=== PATIENT | female | born 1980 | race Caucasian/White ===

== ENCOUNTER 2017-02-06 16:14 | Inpatient (IN) | payer OTHER ==
[~2017-02-06] VITALS: Ht 162.6 cm; Wt 72.3 kg
[~2017-02-06 16:14] MED LIST: IBUP-1450 PO; PRENTAB26 PO
[2017-02-06] MEDS ORDERED: MoRPHine SULFATE 4 MG/ML 1 ML CARP\\VIAL IV STA (17:56)
[2017-02-06] MEDS ORDERED: SODIUM CHLORIDE 0.9% 500ML 500 ML IV STA (17:56)
[2017-02-06] MEDS ORDERED: ONDANSETRON INJ 2 MG/ML 2 ML VIAL IV STA (17:56)
[2017-02-06] MEDS ORDERED: SODIUM CHLORIDE 0.9% 1000ML 1,000 ML IV STA (17:56)
--- NOTE | 2017-02-06 18:01 | EMERGENCY ROOM VISIT NOTE ---
History Report prepared by Nyasia: Whitney Baker Under the Supervision of: Dr. Elizabeth Tran M.D. First contact with patient: 17:44 Chief Complaint: ABDOMINAL PAIN Stated Complaint: STOMACH AND CHEST PAINS History of Present Illness The patient is a 36 year old female who presents to the Emergency Room with complaints of persistent right upper quadrant abdominal pain that began yesterday. She currently rates her discomfort as a 9/10 in severity. The patient states that yesterday she developed right upper quadrant abdominal pain that has now radiated into her epigastric area. She reports that the pain has radiated into her chest and back. The patient states that she vomited last evening and additionally associates nausea with her symptoms. She reports a history of a cholecystectomy, noting that her pain today feels similar to prior having her gallbladder removed. The patient states that she ate potato soup last evening, but denies eating much today. She states that she smokes 1 pack of cigarettes per day. The patient denies any urinary symptoms and reports normal bowel movements. She denies any chance of , reporting a history of a tubal ligation. The patient denies any history of an appendectomy. Source of History: patient Onset: yesterday Position: abdomen (RUQ) Symptom Intensity: 9/10 Timing: other (persistent) Associated Symptoms: + chest pain, + nausea, + vomiting, + back pain Review of Systems See HPI for pertinent positives & negatives. A total of 10 systems reviewed and were otherwise negative. Past Medical & Surgical Medical Problems: (1) Lower Leg Injury Nos (2) Sprain Of Foot Nos Surgical Problems: (1) H/O tubal ligation (2) S/P cholecystectomy Family History Cancer Social History Smoking Status: Current Every Day Smoker Marital Status: Housing Status: lives with significant other Occupation Status: unemployed Current/Historical Medications Scheduled Amlodipine Besylate (Norvasc), 1 TAB PO DAILY Nicotine (Nicoderm Cq 7 Mg Patch), 1 PATCH TD QAM Scheduled PRN Ibuprofen (Motrin), 600 MG PO Q4 PRN for Headache or Pain Allergies Coded Allergies: Acetaminophen (Unverified Allergy, Unknown, DIZZINESS AND VERTIGO, 02/06/17 ) Diphenhydramine (Unverified Allergy, Unknown, UNKNOWN, 02/06/17) Penicillins (Unverified Allergy, Unknown, UNKNOWN, 6/15/17) Physical Exam Vital Signs Date Time Temp Pulse Resp B/P (MAP) Pulse Ox O2 Delivery O2 Flow Rate FiO2 02/06/17 21:35 86 20 159/100 96 Room Air 02/06/17 20:55 67 20 160/104 97 Room Air 02/06/17 19:56 76 20 138/90 98 Room Air 02/06/17 18:58 68 20 151/100 98 Room Air 02/06/17 16:21 36.7 78 20 150/106 97 Room Air Physical Exam Vital signs reviewed. General: Well-appearing female, in no significant distress. HEENT: No scleral icterus, PERRLA, neck supple. Atraumatic. Cardiovascular: Regular rate and rhythm, no extra sounds. Pulmonary: Clear to auscultation bilaterally, normal work of breathing. Abdomen: Tender to the right upper quadrant and epigastric region with some guarding. Soft, nondistended, positive bowel sounds. Musculoskeletal: Atraumatic, no peripheral edema. Neurologic: Patient awake alert and oriented x 3, full strength in all 4 extremities. Cranial nerves 2 through 12 grossly intact. Skin: Warm, dry, no rash Medical Decision & Procedures ER Provider Diagnostic Interpretation: CT results as stated below per my review and radiologist interpretation: CT OF THE ABDOMEN AND PELVIS WITH CONTRAST CLINICAL HISTORY: RUQ pain, s/p cholecystectomy COMPARISON STUDY: CT of the abdomen and pelvis and right upper quadrant ultrasound January 04, 2014. TECHNIQUE: Following IV administration of 94 mL of Optiray-320, axial images of the abdomen and pelvis were obtained from the lung bases to the proximal femurs. Images were reviewed in the axial, sagittal, and coronal planes. IV contrast was administered without complication. CT DOSE: 347.12 mGy.cm FINDINGS: The gallbladder is surgically absent. There is mild intra and extrahepatic biliary ductal dilatation. The common bile duct measures 1 cm in caliber. No radiopaque common bile duct calculi are identified. There is no fluid collection within the cholecystectomy bed. There may be minimal peripancreatic infiltration with slight indistinctness of the peripancreatic fat planes. The spleen, adrenal glands and these are normal. There is no hydronephrosis. There is no evidence for a bowel obstruction. The appendix is normal. There are tubal ligation clips. The ovaries contain several follicles. No suspicious osseous lesions are present. There is no lymphadenopathy. Major vasculature of the abdomen and pelvis is patent. There are no hepatic lesions. The portal veins are patent. Note is made of focal fat within the medial segment of the left hepatic lobe. IMPRESSION: 1. Minimal peripancreatic infiltration with slight indistinctness of the peripancreatic fat planes which may reflect acute pancreatitis. 2. Mild biliary ductal dilatation. This may be related to prior cholecystectomy although recommend correlation with obstructive liver function tests. Electronically signed by: Misha Barbosa M.D. 02/06/2017 7:44 PM Dictated Date/Time: 02/06/2017 7:37 PM Laboratory Results Test 02/06/17 18:10 02/06/17 18:30 Urine Color YELLOW Urine Appearance CLEAR (CLEAR) Urine pH 7.0 (4.5-7.5) Urine Specific [place] 1.005 (1.000-1.030) Urine Protein NEG (NEG) Urine Glucose (UA) NEG (NEG) Urine Ketones NEG (NEG) Urine Occult Blood NEG (NEG) Urine Nitrite NEG (NEG) Urine Bilirubin NEG (NEG) Urine Urobilinogen NEG (NEG) Urine Leukocyte Esterase NEG (NEG) Urine Test NEG (NEG) Direct Bilirubin 1.2 mg/dl (0-0.2) Amylase Level 1026 U/L (25-115) Laboratory results per my review. Medications Administered Medications (Trade) Dose Ordered Sig/Janeen Route Start Time Stop Time Status Last Admin Dose Admin Sodium Chloride 500 ml @ 999 mls/hr Q31M STAT IV 02/06/17 17:56 02/06/17 18:26 DC 02/06/17 19:00 999 MLS/HR Sodium Chloride 1,000 ml @ 125 mls/hr Q8H STAT IV 02/06/17 17:56 02/06/17 20:36 DC 02/06/17 18:59 125 MLS/HR Morphine Sulfate (MoRPHine SULFATE INJ) 4 mg NOW STAT IV 02/06/17 17:56 02/06/17 17:59 DC 02/06/17 18:59 4 MG Ondansetron HCl (Zofran Inj) 4 mg NOW STAT IV 02/06/17 17:56 02/06/17 17:59 DC 02/06/17 18:59 4 MG Potassium Chloride (Klor-Con M10) 40 meq NOW STAT PO 02/06/17 20:34 02/06/17 21:27 DC 02/06/17 21:33 40 MEQ Lactated Ringer's 1,000 ml @ 200 mls/hr Q5H IV 02/06/17 20:45 02/08/17 11:31 DC 02/08/17 08:05 200 MLS/HR Ketorolac Tromethamine (Toradol Inj) 30 mg NOW STAT IV 02/06/17 21:01 02/06/17 21:27 DC 02/06/17 21:32 30 MG Ketorolac Tromethamine (Toradol Inj) 30 mg Q6H PRN IV 02/06/17 21:15 02/08/17 13:33 DC 02/07/17 21:30 30 MG Morphine Sulfate (MoRPHine SULFATE INJ) 4 mg Q4H PRN IV 02/06/17 21:15 02/07/17 12:23 DC 02/07/17 09:39 4 MG Tramadol HCl (Ultram Tab) Q6H PRN PO 02/06/17 21:15 02/08/17 13:33 DC 02/08/17 05:46 50 MG ECG Indication: abdominal pain, chest pain Rate (beats per minute): 80 Rhythm: normal sinus Findings: no acute ischemic change, no ectopy ED Course 1751: Past medical records reviewed. The patient was evaluated in room C2A. A complete history and physical examination was performed. 1755: Ordered Zofran Inj 4 mg IV, Morphine Sulfate 4 mg IV, Sodium Chloride 1000 ml @ 125 mls/hr IV, Sodium Chloride 500 ml @ 999 mls/hr IV. 2011: I reevaluated the patient and she is resting comfortably. I discussed the exam findings with her and I discussed the treatment plan. She verbalized complete understanding and agreement. She is going to be evaluated for further treatment. 2014: I discussed the patients case with Dr. Calix, Gastroenterology. She is aware of the patient. 2018: I discussed the patients case with Dr. De Oliveira [facility]. He will evaluate the patient for further treatment. Medical Decision Differential diagnosis: Etiologies such as appendicitis, diverticulitis, PUD, biliary pathology, UTI, pancreatitis, obstruction, mesenteric ischemia, aortic pathology, infections, inflammatory bowel disease, renal colic, as well as others were entertained. Medication Reconciliation: I attest that I have personally reviewed the patient' s current medication list. Blood Pressure Screening: Patient was found to have an elevated blood pressure and she will follow along as an inpatient for her symptoms. She additionally notes that she has a known history of hypertension. This pt was evaluated and appeared to be in no distress. IV access was obtained and lab work was drawn. Pt was placed on the knit tubing dyer. Patient was hydrated with normal saline solution. Patient was given IV morphine and Zofran for her discomfort. Laboratory work reveals no elevation of the cardiac enzymes. The patient's lipase is markedly elevated at 18,000. She does have an obstructive pattern to her LFTs. Patient is status post cholecystectomy. CT scan of the abdomen and pelvis is consistent with an acute pancreatitis. There is mild dilatation of the biliary duct. After consultation with Dr. Calix of gastroenterology, the patient will be evaluated by the internal medicine service for admission and further management. Gastroenterology will be consulting. Patient is aware of the plan and agrees. Consults Time Called: 1956 Consulting Physician: Dr. Calix, Gastroenterology Returned Call: 2014 I discussed the patients case with Dr. Calix, Gastroenterology. She is aware of the patient. Additional Consults: Time Called: 2004 Consulted Physician: Abran Mix Returned Call: 2017 Additional Comments: I discussed the patients case with Abran Mix. He will evaluate the patient for further treatment. Impression Primary Impression: Pancreatitis Additional Impression: Biliary obstruction Scribe Attestation The scribe's documentation has been prepared under my direction and personally reviewed by me in its entirety. I confirm that the note above accurately reflects all work, treatment, procedures, and medical decision making performed by me. Departure Information Dispostion Being Evaluated By Hospitalist Prescriptions Amlodipine Besylate (NORVASC) 10 Mg Tab 1 TAB PO DAILY for 30 Days, #30 TAB 0 Refills Prov: Keli Perez, DO 02/08/17 Nicotine (NICODERM CQ 7 MG PATCH) 7 Mg/24 Hr Dis 1 PATCH TD QAM for 15 Days, #15 PATCH Prov: Keli Perez, DO 02/08/17 Referrals Annalise Cota D.O. (PCP) Problem Qualifiers
[2017-02-06] MEDS ORDERED: HYDR12.55 PO (18:05)
[2017-02-06] MEDS ORDERED: OPTIRAY 320 IV PRN (18:15)
[2017-02-06 18:23] LABS: URINE APPEARANCE CLEAR (CLEAR); URINE BILIRUBIN NEG (NEG); URINE COLOR YELLOW; URINE NITRITE NEG (NEG); URINE SPECIFIC GRAVITY 1.005 (1.000-1.030); UROBILINOGEN NEG (NEG); ZZUR CULT IF INDIC CLEAN CATCH NO
[2017-02-06 18:25] LABS: MANUAL MICROSCOPIC REQUIRED? NO; REVIEW REQ? NO
[2017-02-06 18:45] LABS: BASO % 0.2 %; BASO ABS # 0.02 K/uL (0-0.2); COMPLETE YES; EOS % 1.2 %; HEMATOCRIT 44.5 % (37-47); IG% 0.3 %; LYMPH ABS # 1.88 K/uL (1.2-3.4); MEAN CELL VOLUME 87.1 fL (80-100); MEAN CORPUSCULAR HEMOGLOBIN 29.7 pg (25-34); MEAN CORPUSCULAR HGB CONC 34.2 g/dl (32-36); MEAN PLATELET VOLUME 11.1 fL (7.4-10.4); MONO % 6.9 %; NEUT % 73.4 %; PLATELET COUNT 282 K/uL (130-400); RED BLOOD COUNT 5.11 M/uL (4.2-5.4); WHITE BLOOD COUNT 10.42 K/uL (4.8-10.8)
[2017-02-06 19:06] LABS: BUN/CREATININE RATIO 5.5 (10-20); CALCIUM 8.8 mg/dl (8.5-10.1); CREATININE 0.6 mg/dl (0.60-1.20); POTASSIUM 2.8 mmol/L (3.5-5.1)
--- NOTE | 2017-02-06 19:46 | DIAGNOSTIC IMAGING REPORT ---
CT OF THE ABDOMEN AND PELVIS WITH CONTRAST CLINICAL HISTORY: RUQ pain, s/p cholecystectomy COMPARISON STUDY: CT of the abdomen and pelvis and right upper quadrant ultrasound January 04, 2014. TECHNIQUE: Following IV administration of 94 mL of Optiray-320, axial images of the abdomen and pelvis were obtained from the lung bases to the proximal femurs. Images were reviewed in the axial, sagittal, and coronal planes. IV contrast was administered without complication. CT DOSE: 347.12 mGy.cm FINDINGS: The gallbladder is surgically absent. There is mild intra and extrahepatic biliary ductal dilatation. The common bile duct measures 1 cm in caliber. No radiopaque common bile duct calculi are identified. There is no fluid collection within the cholecystectomy bed. There may be minimal peripancreatic infiltration with slight indistinctness of the peripancreatic fat planes. The spleen, adrenal glands and these are normal. There is no hydronephrosis. There is no evidence for a bowel obstruction. The appendix is normal. There are tubal ligation clips. The ovaries contain several follicles. No suspicious osseous lesions are present. There is no lymphadenopathy. Major vasculature of the abdomen and pelvis is patent. There are no hepatic lesions. The portal veins are patent. Note is made of focal fat within the medial segment of the left hepatic lobe. IMPRESSION: 1. Minimal peripancreatic infiltration with slight indistinctness of the peripancreatic fat planes which may reflect acute pancreatitis. 2. Mild biliary ductal dilatation. This may be related to prior cholecystectomy although recommend correlation with obstructive liver function tests. Electronically signed by: Misha Barbosa M.D. 02/06/2017 7:44 PM Dictated Date/Time: 02/06/2017 7:37 PM
[2017-02-06] MEDS ORDERED: POTASSIUM CHLORIDE 10 MEQ TABCR PO STA (20:34)
[2017-02-06] MEDS ORDERED: KETOROLAC TROMETHAMINE 30 MG/ML VIAL IV STA (21:01)
[2017-02-06] MEDS: MoRPHine SULFATE 4 MG/ML 1 ML CARP\\VIAL IV PRN (21:32)
[2017-02-06] MEDS ORDERED: LORAZEPAM 2 MG/ML 1 ML VIAL IV PRN (22:00)
[2017-02-06 22:50] VITALS: BP 169/120; PULSE 66; TEMP 36.7; O2SAT 96
[2017-02-06] MEDS ORDERED: POTASSIUM CHLORIDE 10 MEQ TABCR PO ONE (23:00)
[2017-02-06] MEDS: LACTATED RINGER'S 1000ML 1,000 ML IV SCH (23:00)
--- NOTE | 2017-02-06 23:11 | DIAGNOSTIC IMAGING REPORT ---
MRCP CLINICAL HISTORY: Abdominal pain. COMPARISON STUDY: CT of the abdomen and pelvis performed earlier today. TECHNIQUE: Utilizing a 1.5 Nydia magnet, multiplanar, multi echo imaging of the upper abdomen was performed utilizing heavily T2 weighted sequences. No intravenous contrast was administered. FINDINGS: There is mild intra and extrahepatic biliary ductal dilatation status post cholecystectomy. Common bile duct measures 1 cm in caliber. This study is mildly compromised by motion artifact. No common bile duct calculus is identified. The course and caliber of the main pancreatic duct is normal. There is no peripancreatic fluid. There are no peripancreatic fluid collections. Unenhanced images of liver, spleen, adrenal glands and kidneys are normal. There is no hydronephrosis. There is no ascites or lymphadenopathy within the abdomen. IMPRESSION: Mild biliary ductal dilatation status post cholecystectomy. No common bile duct calculi identified although exam mildly compromised by motion artifact. Electronically signed by: Misha Barbosa M.D. 02/06/2017 11:10 PM Dictated Date/Time: 02/06/2017 11:01 PM
[2017-02-06 23:15] VITALS: O2SAT 96; Ht 162.6 cm; Wt 72.3 kg
[2017-02-06] MEDS: KETOROLAC TROMETHAMINE 30 MG/ML VIAL IV PRN (23:23)
[2017-02-06 23:36] VITALS: BP 147/94; PULSE 55
[2017-02-07] VITALS (7 sets, daily range): BP systolic 125–179; BP diastolic 80–116; PULSE 50–63; TEMP 36.3–36.7; O2SAT 92–96
--- NOTE | 2017-02-07 00:42 | HISTORY & PHYSICAL EXAMINATION ---
DATE OF ADMISSION: 02/06/2017 PRIMARY CARE DOCTOR: Dr. Cota. CHIEF COMPLAINT: Abdominal pain. HISTORY OF PRESENT ILLNESS: Hx obtained from px and records. Medical history significant for hypertension, ongoing tobacco abuse. In the last 2 months, patient would have intermittent achy right upper quadrant pain w/ nausea, similar to gallbladder pain, unrelated to food, spontaneously resolving, would just last for a few hours. Yesterday, more constant pain, achy with nausea, no vomiting, no fever, no chills. Patient directed to the Emergency Room by PCP. MEDICAL HISTORY: As above. Recently started on HCTZ for blood pressure elevation. SURGERIES: She had cholecystectomy. HOME MEDICATIONS: Include HCTZ, ibuprofen. ALLERGIES: DIPHENHYDRAMINE, PENICILLIN AND TYLENOL. FAMILY HISTORY: Gallbladder disease. PERSONAL AND SOCIAL HISTORY: One-fourth pack daily. No chronic intake of alcoholic beverages. Works as a postal service window clerk. REVIEW OF SYSTEMS: As per HPI, all other ROS negative. PHYSICAL EXAMINATION: VITAL SIGNS: Blood pressure was noted to be 150/80, pulse rate 70, RR 26, temperature 36.6, sats 98 on room air. GENERAL: Noted to be slightly uncomfortable, no resp distress. SKIN: Normal color. HEENT: [place] palpebral conjunctivae. Dry mucosa. NECK: No JVD. Supple. CHEST: Clear to auscultation. HEART: Regular rate and rhythm. ABDOMEN: Epigastric tenderness. EXTREMITIES: No edema. no tenderness NEUROLOGIC: No gross focality. LABS: Hemoglobin 15, hematocrit 44, white cells 10, platelets 280. Sodium 140, potassium, 2.8, chloride 105, CO2 30. BUN noted to be 3, creatinine 0.6, glucose was noted to be 92. AST 442, ALT 285, alkaline phosphatase 270, lipase was 18,863. CT abdomen and pelvis showed minimal peripancreatic infiltration, acute pancreatitis, mild biliary duct dilatation. ASSESSMENT: 1. Acute biliary pancreatitis possible retained stone. 2. Hypertension, slightly elevated. 3. Hypokalemia, secondary to illness/diuretic therapy. 4. ongoing tobacco abuse PLAN: GMF analgesia, IV fluids, bowel rest MRCP GI consult RE pancreatitis. (ER M.D. already in touch with Dr. Calix) Replace potassium. Hold HCTZ for now Nicotine patch. DVT prophylaxis Lovenox subQ. Full code. MTDD
[2017-02-07] MEDS: LACTATED RINGER'S 1000ML 1,000 ML IV SCH ×5 (01:39→21:30)
[2017-02-07] MEDS: MoRPHine SULFATE 4 MG/ML 1 ML CARP\\VIAL IV PRN ×3 (01:39→09:39)
[2017-02-07 06:58] LABS: BASO % 0.3 %; BASO ABS # 0.03 K/uL (0-0.2); COMPLETE YES; EOS % 1.7 %; HEMATOCRIT 43.4 % (37-47); IG% 0.2 %; LYMPH % 23.1 %; LYMPH ABS # 2.26 K/uL (1.2-3.4); MEAN CELL VOLUME 87.9 fL (80-100); MEAN CORPUSCULAR HEMOGLOBIN 27.5 pg (25-34); MEAN CORPUSCULAR HGB CONC 31.3 g/dl (32-36); MEAN PLATELET VOLUME 10.2 fL (7.4-10.4); MONO % 8.5 %; NEUT % 66.2 %; PLATELET COUNT 253 K/uL (130-400); RED BLOOD COUNT 4.94 M/uL (4.2-5.4)
[2017-02-07 07:12] LABS: INR 1.1 (0.9-1.1); PROTHROMBIN TIME (PATIENT) 11.6 SECONDS (9.0-12.0)
[2017-02-07 07:48] LABS: BUN/CREATININE RATIO 14.3 (10-20); CALCIUM 8.5 mg/dl (8.5-10.1); CREATININE 0.51 mg/dl (0.60-1.20); POTASSIUM 3.4 mmol/L (3.5-5.1)
[2017-02-07] MEDS ORDERED: POTASSIUM CHLORIDE 20 MEQ TABCR PO ONE (08:30)
[2017-02-07] MEDS: KETOROLAC TROMETHAMINE 30 MG/ML VIAL IV PRN ×2 (08:33→21:30)
[2017-02-07] MEDS: ENOXAPARIN 40 MG/0.4 ML SYR SQ SCH (09:00)
--- NOTE | 2017-02-07 09:00 | Gastrointestinal Consultation ---
Gastrointestinal Consultation Date of Consultation: Feb 07, 2017 Attending Physician: Dr. Perez; consult from Dr. De Oliveira Consulting Physician: Dr. Jaiden Howell Reason for Consultation: Pancreatitis History of Present Illness Patient is a 36 year old female patient with a hx of cholecystectomy in 2013, newly dx'ed HTN (for which she was prescribed HCTZ but hasn't yet filled the prescription) presented to the ED yesterday for abdominal pain. GI is consulted for pancreatitis. She is seen and examined while she is somewhat sleepy but is oriented and able to provide a hx. Pain began around 8PM on Friday evening and has persisted, worsening since then. Initially it was in the right mid abdomen but has moved to the RUQ and across the entire upper abdomen, worse in the epigastric area, radiating to the back. With the pain, she has had nausea and one episode of vomiting on Fri night. She has not had fevers but does have sweating with waves of worsening pain. She noticed very dark urine since Fri evening but no acholic stools, jaundice or icterus. 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 She recalls that during the past month, she has had similar episodes of pain lasting only a few hours for which she did not seek care. She is not on any regular meds. She takes ibuprofen 600mg occasionally for headaches, aches and pains and thinks she took this about 3 times in the month of January. This prescription strength pill was "left over" from having a tubal ligation in October. On arrival, LFTs and lipase were elevated. T bili was 2.4 on arrival and is 3.5 this morning. AST was 442 and is now 243. ALT was 285 and is now 214. Lipase was > 18k yesterday and >3k today. She is afebrile w/o leukocytosis. She has not had tachycardia or hypotension and creatinine has remained normal. She is receiving LR at 200/hr. CT with mild pancreatitis, CBD dilated at 1cm but no clear evidence of choledocholithiasis. She is S/P cholecystectomy. Past Medical/Surgical History Medical Problems: (1) Biliary obstruction Status: Acute (2) Hypertension Status: Acute (3) Pancreatitis Status: Acute Family History Cancer Social History Smoking Status: Current Every Day Smoker Marital Status: Housing Status: lives with significant other Occupation Status: unemployed Allergies Coded Allergies: Acetaminophen (Unverified Allergy, Unknown, DIZZINESS AND VERTIGO, 02/06/17 ) Diphenhydramine (Unverified Allergy, Unknown, UNKNOWN, 02/06/17) Penicillins (Unverified Allergy, Unknown, UNKNOWN, 02/06/17) Current Medications Home Meds and Scripts Medications Dose Route/Sig Max Daily Dose Days Date Category Hydrochlorothiazide 12.5 Mg Tab 12.5 Mg PO DAILY 02/06/17 Reported Motrin (Ibuprofen) 600 Mg Tab 600 Mg PO Q4 PRN 07/30/16 Reported Review of Systems Constitutional: + sweats, No fever, No chills, No weight loss, No weakness Eyes: No eye pain, No redness ENT: No sore throat, No trouble swallowing, No pain on swallowing Respiratory: No cough, No wheezing, No shortness of breath, No dyspnea on exertion Cardiac: No chest pain, No edema, No palpitations Abdomen: + see HPI, + pain, + nausea, + vomiting, + dark urine, No GI bleeding , No acolic stools, No jaundice Neuro: No memory loss, No weakness, No numbness/tingling, No vertigo, No balance problems Psych: No depression symptoms, No anxiety, No insomnia Heme: No abnormal bleeding/bruising, No night sweats Endo: No excessive thirst, No excessive urination Skin: No rash, No itch, No new/changing skin lesions, No jaundice Physical Exam Date Time Temp Pulse Resp B/P (MAP) Pulse Ox O2 Delivery O2 Flow Rate FiO2 02/07/17 06:55 36.5 63 16 125/80 (95) 93 Room Air 02/06/17 23:36 55 147/94 (111) 02/06/17 23:15 Room Air 02/06/17 23:15 96 Room Air 02/06/17 22:50 36.7 66 16 169/120 (136) 96 Room Air 02/06/17 21:35 86 20 159/100 96 Room Air 02/06/17 20:55 67 20 160/104 97 Room Air 02/06/17 19:56 76 20 138/90 98 Room Air 02/06/17 18:58 68 20 151/100 98 Room Air 02/06/17 16:21 36.7 78 20 150/106 97 Room Air General Appearance: no apparent distress Eyes: normal inspection, EOMI Neck: supple, no adenopathy, thyroid normal Respiratory/Chest: chest non-tender, lungs clear, normal breath sounds, no accessory muscle use Cardiovascular: regular rate, rhythm, no JVD, no murmur Abdomen: normal bowel sounds, soft, no organomegaly, + tenderness (moderate tenderness of the right upper and lower abdomen, very tender in the epigastric area.) Extremities: normal inspection, no pedal edema, normal capillary refill Neurologic/Psych: alert, normal mood/affect, oriented x 3 Skin: normal color, no jaundice, warm/dry, no rash Laboratory Results Last 24 Hours Test 02/06/17 18:10 02/06/17 18:30 02/07/17 06:34 Urine Color YELLOW Urine Appearance CLEAR Urine pH 7.0 Urine Specific [place] 1.005 Urine Protein NEG Urine Glucose (UA) NEG Urine Ketones NEG Urine Occult Blood NEG Urine Nitrite NEG Urine Bilirubin NEG Urine Urobilinogen NEG Urine Leukocyte Esterase NEG Urine Test NEG White Blood Count 10.42 K/uL 9.80 K/uL Red Blood Count 5.11 M/uL 4.94 M/uL Hemoglobin 15.2 g/dL 13.6 g/dL Hematocrit 44.5 % 43.4 % Mean Corpuscular Volume 87.1 fL 87.9 fL Mean Corpuscular Hemoglobin 29.7 pg 27.5 pg Mean Corpuscular Hemoglobin Concent 34.2 g/dl 31.3 g/dl Platelet Count 282 K/uL 253 K/uL Mean Platelet Volume 11.1 fL 10.2 fL Neutrophils (%) (Auto) 73.4 % 66.2 % Lymphocytes (%) (Auto) 18.0 % 23.1 % Monocytes (%) (Auto) 6.9 % 8.5 % Eosinophils (%) (Auto) 1.2 % 1.7 % Basophils (%) (Auto) 0.2 % 0.3 % Neutrophils # (Auto) 7.65 K/uL 6.49 K/uL Lymphocytes # (Auto) 1.88 K/uL 2.26 K/uL Monocytes # (Auto) 0.72 K/uL 0.83 K/uL Eosinophils # (Auto) 0.12 K/uL 0.17 K/uL Basophils # (Auto) 0.02 K/uL 0.03 K/uL RDW Standard Deviation 46.2 fL 47.2 fL RDW Coefficient of Variation 14.5 % 14.6 % Immature Granulocyte % (Auto) 0.3 % 0.2 % Immature Granulocyte # (Auto) 0.03 K/uL 0.02 K/uL Sodium Level 141 mmol/L 146 mmol/L Potassium Level 2.8 mmol/L 3.4 mmol/L Chloride Level 105 mmol/L 110 mmol/L Carbon Dioxide Level 30 mmol/L 27 mmol/L Anion Gap 6.0 mmol/L 9.0 mmol/L Blood Urea Nitrogen 3 mg/dl 7 mg/dl Creatinine 0.60 mg/dl 0.51 mg/dl Est Creatinine Clear Calc Drug Dose 126.4 ml/min 148.7 ml/min Estimated GFR () 135.9 143.4 Estimated GFR (Non- 117.3 123.7 BUN/Creatinine Ratio 5.5 14.3 Random Glucose 92 mg/dl 63 mg/dl Calcium Level 8.8 mg/dl 8.5 mg/dl Magnesium Level 2.0 mg/dl Total Bilirubin 2.4 mg/dl 3.5 mg/dl Direct Bilirubin 1.2 mg/dl Aspartate Amino Transf (AST/SGOT) 442 U/L 243 U/L Alanine Aminotransferase (ALT/SGPT) 285 U/L 214 U/L Alkaline Phosphatase 270 U/L 262 U/L Total Protein 7.6 gm/dl 6.1 gm/dl Albumin 3.8 gm/dl 3.0 gm/dl Amylase Level 1026 U/L Lipase 36753 U/L 3434 U/L Prothrombin Time 11.6 SECONDS Prothromb Time International Ratio 1.1 Globulin 3.1 gm/dl Albumin/Globulin Ratio 1.0 MRI: Mild biliary ductal dilatation status post cholecystectomy. No common bile duct calculi identified although exam mildly compromised by motion artifact. Impression Patient is a 36 year old female with acute pancreatitis with elevation of the LFTs and bile duct dilation, both suggestive of choledocholithiasis though no clear evidence of that on imaging. She does not drink alcohol and is not on any regular medicines or supplements so there is no other obvious cause for the pancreatitis. Plan 1. EUS today by Dr. Howell. 2. If EUS with choledocholithiasis, will go forward with ERCP. 3. Please keep NPO. 4. Appreciate primary services management of fluids, electrolytes. Please continue with LR at 200/hr. I saw and evaluated the patient. She presented with a history of recurrent RUQ pain since cholecystectomy about 2 years ago. Last evening she was found to have elevated LAEs, MRCP inconclusive due to motion artifact. PE: Scleral icterus, Mild RUQ tenderness Impression; Patient with signs / symptoms of a retained or de lin stone post cholecystectomy. We have discussed the risks to include bleeding, infection, perforation, pain, pancreatitis, and failed biliary cannulation. Plan EGD / EUS ERCP if found to have a CBD stones
[2017-02-07] MEDS: ONDANSETRON INJ 2 MG/ML 2 ML VIAL IV PRN ×2 (09:34→17:57)
[2017-02-07] MEDS: NICOTINE 7 MG/24 HR TDSY TD SCH (09:36)
[2017-02-07] MEDS ORDERED: HYDROmorphone INJ 0.5 MG/0.5 ML SYR IV STA (12:20)
[2017-02-07] MEDS ORDERED: MoRPHine SULFATE 10 MG/ML CARP/VIAL IV PRN (12:30)
--- NOTE | 2017-02-07 12:33 | Progress Note ---
Medicine Progress Note Date & Time of Visit: Feb 07, 2017 at 12:24. Subjective 36 yo F with acute pancreatitis Symptoms have been ongoing for the past 3-4 months where she will feel this same pain and it will spontaneously resolve within 3-4 hours. She denies going to see a doctor about this issue. She is not a drinker, has had her GB out, denies any new medications that she has started including no OTC and is otherwise healthy. 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 She feels about the same as yesterday and is complaining of uncontrolled pain in her epigastric area. She does state there is no further radiation to her back any longer. Denies fevers, chills or other symptoms at this time. NPO in prep for GI procedure later today. Objective Last 8 Hrs Date Time Temp Pulse Resp B/P (MAP) Pulse Ox O2 Delivery O2 Flow Rate FiO2 02/07/17 06:55 36.5 63 16 125/80 (95) 93 Room Air Physical Exam: GEN: WNWD, in no acute distress, alert and appropriate HEENT: NC/AT, PERRL, normal sclerae, MM dry CARDIO: reg rate, S1/2 heard without m/g/r, no LE swelling or edema LUNGS: CTA bilaterally, no crackles, rales or wheezes, good diaphragmatic excursion ABD: soft, epigastric TTP, non-distended, no rebound or guarding, +BS-hypoactive , no CVA tenderness EXTREMITY: RP and DP palpable 2+ bilat, extremities are warm and well-perfused NEURO: CN 2-12 grossly intact, no gross focal deficits. MUSC: moves all extremities equally. Can sit up on her own. SKIN: warm and dry Laboratory Results: 02/07/17 06:34 Red Blood Count 4.94, Mean Corpuscular Volume 87.9, Mean Corpuscular Hemoglobin 27.5, Mean Corpuscular Hemoglobin Concent 31.3, Mean Platelet Volume 10.2, Neutrophils (%) (Auto) 66.2, Lymphocytes (%) (Auto) 23.1, Monocytes (%) (Auto) 8.5, Eosinophils (%) (Auto) 1.7, Basophils (%) (Auto) 0.3, Neutrophils # (Auto) 6.49, Lymphocytes # (Auto) 2.26, Monocytes # (Auto) 0.83, Eosinophils # (Auto) 0.17, Basophils # (Auto) 0.03 02/07/17 06:34 Test 02/06/17 18:10 02/06/17 18:30 02/07/17 06:34 Urine Color YELLOW Urine Appearance CLEAR (CLEAR) Urine pH 7.0 (4.5-7.5) Urine Specific [place] 1.005 (1.000-1.030) Urine Protein NEG (NEG) Urine Glucose (UA) NEG (NEG) Urine Ketones NEG (NEG) Urine Occult Blood NEG (NEG) Urine Nitrite NEG (NEG) Urine Bilirubin NEG (NEG) Urine Urobilinogen NEG (NEG) Urine Leukocyte Esterase NEG (NEG) Urine Test NEG (NEG) Magnesium Level 2.0 mg/dl (1.8-2.4) Direct Bilirubin 1.2 mg/dl (0-0.2) Amylase Level 1026 U/L (25-115) White Blood Count 9.80 K/uL (4.8-10.8) Red Blood Count 4.94 M/uL (4.2-5.4) Hemoglobin 13.6 g/dL (12.0-16.0) Hematocrit 43.4 % (37-47) Mean Corpuscular Volume 87.9 fL (80-100) Mean Corpuscular Hemoglobin 27.5 pg (25-34) Mean Corpuscular Hemoglobin Concent 31.3 g/dl (32-36) Platelet Count 253 K/uL (130-400) Mean Platelet Volume 10.2 fL (7.4-10.4) Neutrophils (%) (Auto) 66.2 % Lymphocytes (%) (Auto) 23.1 % Monocytes (%) (Auto) 8.5 % Eosinophils (%) (Auto) 1.7 % Basophils (%) (Auto) 0.3 % Neutrophils # (Auto) 6.49 K/uL (1.4-6.5) Lymphocytes # (Auto) 2.26 K/uL (1.2-3.4) Monocytes # (Auto) 0.83 K/uL (0.11-0.59) Eosinophils # (Auto) 0.17 K/uL (0-0.5) Basophils # (Auto) 0.03 K/uL (0-0.2) RDW Standard Deviation 47.2 fL (36.4-46.3) RDW Coefficient of Variation 14.6 % (11.5-14.5) Immature Granulocyte % (Auto) 0.2 % Immature Granulocyte # (Auto) 0.02 K/uL (0.00-0.02) Prothrombin Time 11.6 SECONDS (9.0-12.0) Prothromb Time International Ratio 1.1 (0.9-1.1) Anion Gap 9.0 mmol/L (3-11) Est Creatinine Clear Calc Drug Dose 148.7 ml/min Estimated GFR () 143.4 Estimated GFR (Non- 123.7 BUN/Creatinine Ratio 14.3 (10-20) Calcium Level 8.5 mg/dl (8.5-10.1) Total Bilirubin 3.5 mg/dl (0.2-1) Aspartate Amino Transf (AST/SGOT) 243 U/L (15-37) Alanine Aminotransferase (ALT/SGPT) 214 U/L (12-78) Alkaline Phosphatase 262 U/L (45-117) Total Protein 6.1 gm/dl (6.4-8.2) Albumin 3.0 gm/dl (3.4-5.0) Globulin 3.1 gm/dl (2.5-4.0) Albumin/Globulin Ratio 1.0 (0.9-2) Lipase 3434 U/L (73-393) Last 24 Hours Test 02/06/17 18:10 02/06/17 18:30 02/07/17 06:34 Urine Color YELLOW Urine Appearance CLEAR Urine pH 7.0 Urine Specific [place] 1.005 Urine Protein NEG Urine Glucose (UA) NEG Urine Ketones NEG Urine Occult Blood NEG Urine Nitrite NEG Urine Bilirubin NEG Urine Urobilinogen NEG Urine Leukocyte Esterase NEG Urine Test NEG White Blood Count 10.42 K/uL 9.80 K/uL Red Blood Count 5.11 M/uL 4.94 M/uL Hemoglobin 15.2 g/dL 13.6 g/dL Hematocrit 44.5 % 43.4 % Mean Corpuscular Volume 87.1 fL 87.9 fL Mean Corpuscular Hemoglobin 29.7 pg 27.5 pg Mean Corpuscular Hemoglobin Concent 34.2 g/dl 31.3 g/dl Platelet Count 282 K/uL 253 K/uL Mean Platelet Volume 11.1 fL 10.2 fL Neutrophils (%) (Auto) 73.4 % 66.2 % Lymphocytes (%) (Auto) 18.0 % 23.1 % Monocytes (%) (Auto) 6.9 % 8.5 % Eosinophils (%) (Auto) 1.2 % 1.7 % Basophils (%) (Auto) 0.2 % 0.3 % Neutrophils # (Auto) 7.65 K/uL 6.49 K/uL Lymphocytes # (Auto) 1.88 K/uL 2.26 K/uL Monocytes # (Auto) 0.72 K/uL 0.83 K/uL Eosinophils # (Auto) 0.12 K/uL 0.17 K/uL Basophils # (Auto) 0.02 K/uL 0.03 K/uL RDW Standard Deviation 46.2 fL 47.2 fL RDW Coefficient of Variation 14.5 % 14.6 % Immature Granulocyte % (Auto) 0.3 % 0.2 % Immature Granulocyte # (Auto) 0.03 K/uL 0.02 K/uL Sodium Level 141 mmol/L 146 mmol/L Potassium Level 2.8 mmol/L 3.4 mmol/L Chloride Level 105 mmol/L 110 mmol/L Carbon Dioxide Level 30 mmol/L 27 mmol/L Anion Gap 6.0 mmol/L 9.0 mmol/L Blood Urea Nitrogen 3 mg/dl 7 mg/dl Creatinine 0.60 mg/dl 0.51 mg/dl Est Creatinine Clear Calc Drug Dose 126.4 ml/min 148.7 ml/min Estimated GFR () 135.9 143.4 Estimated GFR (Non- 117.3 123.7 BUN/Creatinine Ratio 5.5 14.3 Random Glucose 92 mg/dl 63 mg/dl Calcium Level 8.8 mg/dl 8.5 mg/dl Magnesium Level 2.0 mg/dl Total Bilirubin 2.4 mg/dl 3.5 mg/dl Direct Bilirubin 1.2 mg/dl Aspartate Amino Transf (AST/SGOT) 442 U/L 243 U/L Alanine Aminotransferase (ALT/SGPT) 285 U/L 214 U/L Alkaline Phosphatase 270 U/L 262 U/L Total Protein 7.6 gm/dl 6.1 gm/dl Albumin 3.8 gm/dl 3.0 gm/dl Amylase Level 1026 U/L Lipase 16527 U/L 3434 U/L Prothrombin Time 11.6 SECONDS Prothromb Time International Ratio 1.1 Globulin 3.1 gm/dl Albumin/Globulin Ratio 1.0 Diagnostic Imaging: MRCP CLINICAL HISTORY: Abdominal pain. COMPARISON STUDY: CT of the abdomen and pelvis performed earlier today. TECHNIQUE: Utilizing a 1.5 Nydia magnet, multiplanar, multi echo imaging of the upper abdomen was performed utilizing heavily T2 weighted sequences. No intravenous contrast was administered. FINDINGS: There is mild intra and extrahepatic biliary ductal dilatation status post cholecystectomy. Common bile duct measures 1 cm in caliber. This study is mildly compromised by motion artifact. No common bile duct calculus is identified. The course and caliber of the main pancreatic duct is normal. There is no peripancreatic fluid. There are no peripancreatic fluid collections. Unenhanced images of liver, spleen, adrenal glands and kidneys are normal. There is no hydronephrosis. There is no ascites or lymphadenopathy within the abdomen. IMPRESSION: Mild biliary ductal dilatation status post cholecystectomy. No common bile duct calculi identified although exam mildly compromised by motion artifact. Assessment & Plan 36 yo F with acute pancreatitis 1. Acute pancreatitis-uncertain etiology at this time and not much improved from a pain standpoint. LFTs are obstructive pattern, MRCP was negative for retained stone and patient is s/p zhanna. GI consulted and plans for EUS later today. Apprec recs. No new meds started (HCTZ ordered but not started as outpatient). Cont LR at 200/hr for now, pain control and NPO for now. 2. HTN-expected situational elevation of BP. Will institute better pain control with morphine. Note that patient is allergic to Tylenol. 3. Hypokalemia-replacement given this am. Will check PRP and Mg in am 4. Tobacco use-cont Nicoderm patch. Pt aware this is a low dose and is OK with that for now. DVT proph: Lovenox in setting of inflammation Full Code Dispo-cont med/surg, awaiting further GI evaluation later today Keli Perez DO [facility] Hospitalist Consultants: GI Current Inpatient Medications: Current Inpatient Medications Medications (Trade) Dose Ordered Sig/Janeen Route Start Time Stop Time Status Last Admin Dose Admin Ioversol (Optiray 320) 100 ml UD PRN IV 02/06/17 18:15 02/10/17 18:14 Lactated Ringer's 1,000 ml @ 200 mls/hr Q5H IV 02/06/17 20:45 03/08/17 20:44 02/07/17 11:21 200 MLS/HR Ketorolac Tromethamine (Toradol Inj) 30 mg Q6H PRN IV 02/06/17 21:15 02/11/17 21:14 02/07/17 08:33 30 MG Morphine Sulfate (MoRPHine SULFATE INJ) 4 mg Q4H PRN IV 02/06/17 21:15 02/20/17 21:14 02/07/17 09:39 4 MG Tramadol HCl (Ultram Tab) Q6H PRN PO 02/06/17 21:15 03/08/17 21:14 Enoxaparin Sodium (Lovenox Inj) 40 mg QAM SQ 02/07/17 09:00 03/09/17 08:59 Ondansetron HCl (Zofran Inj) 4 mg Q6H PRN IV 02/06/17 22:00 03/08/17 21:59 02/07/17 09:34 4 MG Lorazepam (Ativan Inj) 0.5 mg Q4H PRN IV 02/06/17 22:00 03/08/17 21:59 Nicotine (Nicoderm Cq 7 Mg Patch) 1 patch QAM TD 02/07/17 09:00 03/09/17 08:59 02/07/17 09:36 1 PATCH Miscellaneous (Remove Nicoderm Patch) 1 ea HS N/A 02/07/17 21:00 03/09/17 20:59
[2017-02-07] MEDS ORDERED: PROPOFOL IV EMULSION 10 MG/ML 20 ML VIAL IV ONE (14:24)
[2017-02-07] MEDS ORDERED: NEOSTIGMINE METHYLSULFATE 5 MG/5 ML SYR ONE (14:24)
[2017-02-07] MEDS ORDERED: ONDANSETRON INJ 2 MG/ML 2 ML VIAL ONE (14:24)
[2017-02-07] MEDS ORDERED: ROCURONIUM BROMIDE 10 MG/ML 5 ML VIAL ONE (14:24)
[2017-02-07] MEDS ORDERED: MIDAZOLAM HCL 1 MG/ML 2ML VIAL ONE (14:24)
[2017-02-07] MEDS ORDERED: GLYCOPYRROLATE INJ 0.2 MG/ML VIAL ONE (14:24)
[2017-02-07] MEDS ORDERED: LIDOCAINE HCL 2% 2 ML VIAL (20MG/ML) ONE (14:24)
[2017-02-07] MEDS ORDERED: DEXAMETHASONE SOD INJ 4 MG/ML VIAL ONE (14:24)
[2017-02-07] MEDS ORDERED: FENTANYL CITRATE INJ 50 MCG/1 ML 2 ML VIAL ONE (14:24)
[2017-02-07] MEDS ORDERED: FENTANYL CITRATE INJ 50 MCG/1 ML 2 ML VIAL IV PRN (14:45)
[2017-02-07] MEDS ORDERED: ONDANSETRON INJ 2 MG/ML 2 ML VIAL IV PRN (14:45)
[2017-02-07] MEDS ORDERED: ATROPINE SULFATE 0.1 MG/ML 5ML SYR IV PRN (14:45)
[2017-02-07] MEDS ORDERED: PROMETHAZINE HCL INJ 6.25 MG in SODIUM CHLORIDE 0.9% 50ML 50 ML IV PRN (14:45)
[2017-02-07] MEDS ORDERED: EpHEDrine SULFATE INJ 50 MG/ML AMP IV PRN (14:45)
[2017-02-07] MEDS ORDERED: INDOMETHACIN 50 MG SUPP PR ONE ×2 (14:49→16:00)
--- NOTE | 2017-02-07 15:12 | GI REPORT ---
Procedure Date: 02/07/2017 3:06 PM Procedure: Upper GI endoscopy Indications: Epigastric abdominal pain Medicines: General Anesthesia Complications: No immediate complications. Estimated blood loss: Minimal. Estimated Blood Loss: Estimated blood loss was minimal. Procedure: Pre-Anesthesia Assessment: - Prior to the procedure, a History and Physical was performed, and patient medications, allergies and sensitivities were reviewed. The patient's tolerance of previous anesthesia was reviewed. - The risks and benefits of the procedure and the sedation options and risks were discussed with the patient. All questions were answered and informed consent was obtained. - Patient identification and proposed procedure were verified prior to the procedure by the physician, the nurse and the sugar mixer. The procedure was verified in the procedure room. - Pre-procedure physical examination revealed no contraindications to sedation. - ASA Grade Assessment: III - A patient with severe systemic disease. - After reviewing the risks and benefits, the patient was deemed in satisfactory condition to undergo the procedure. - The anesthesia plan was to use general anesthesia. - Immediately prior to administration of medications, the patient was re-assessed for adequacy to receive sedatives. - The heart rate, respiratory rate, oxygen saturations, blood pressure, adequacy of pulmonary ventilation, and response to care were monitored throughout the procedure. - The physical status of the patient was re-assessed after the procedure. After obtaining informed consent, the endoscope was passed under direct vision. Throughout the procedure, the patient's blood pressure, pulse, and oxygen saturations were monitored continuously. The scope was introduced through the mouth, and advanced to the second part of duodenum. The upper GI endoscopy was accomplished without difficulty. The patient tolerated the procedure well. Findings: The examined esophagus was normal. The Z-line was regular and was found 39 cm from the incisors. The entire examined stomach was normal. The examined duodenum was normal. Impression: - Normal esophagus. - Z-line regular, 39 cm from the incisors. - Normal stomach. - Normal examined duodenum. - No specimens collected. Recommendation: - Perform an upper endoscopic ultrasound (UEUS) today. Jaiden Howell D.O. Jaiden Howell DO 02/07/2017 3:11:56 PM This report has been signed electronically. Note Initiated On: 02/07/2017 3:06 PM I attest to the content of the Intraoperative Record and orders documented therein, exceptions below
--- NOTE | 2017-02-07 16:07 | GI REPORT ---
Procedure Date: 02/07/2017 3:12 PM Procedure: Upper EUS Indications: Abnormal liver function test, Suspected choledocholithiasis Medicines: General Anesthesia Complications: No immediate complications. Estimated blood loss: Minimal. Estimated Blood Loss: Estimated blood loss was minimal. Procedure: Pre-Anesthesia Assessment: - Prior to the procedure, a History and Physical was performed, and patient medications, allergies and sensitivities were reviewed. The patient's tolerance of previous anesthesia was reviewed. - The risks and benefits of the procedure and the sedation options and risks were discussed with the patient. All questions were answered and informed consent was obtained. - Patient identification and proposed procedure were verified prior to the procedure by the physician, the nurse and the hand touch up painter. The procedure was verified in the procedure room. - Pre-procedure physical examination revealed no contraindications to sedation. - ASA Grade Assessment: III - A patient with severe systemic disease. - After reviewing the risks and benefits, the patient was deemed in satisfactory condition to undergo the procedure. - The anesthesia plan was to use general anesthesia. - Immediately prior to administration of medications, the patient was re-assessed for adequacy to receive sedatives. - The heart rate, respiratory rate, oxygen saturations, blood pressure, adequacy of pulmonary ventilation, and response to care were monitored throughout the procedure. - The physical status of the patient was re-assessed after the procedure. After obtaining informed consent, the endoscope was passed under direct vision. Throughout the procedure, the patient's blood pressure, pulse, and oxygen saturations were monitored continuously. The Endosonoscope was introduced through the mouth, and advanced to the second part of duodenum. The upper EUS was accomplished without difficulty. The patient tolerated the procedure well. Findings: Endosonographic Finding : Evidence of a previous cholecystectomy was identified endosonographically. There was dilation in the common bile duct which measured up to 9.2 mm. Moderate hyperechoic material consistent with sludge and a stone was visualized endosonographically in the common bile duct. There was no sign of significant endosonographic abnormality in the left lobe of the liver. Homogeneous parenchyma was identified. There was no sign of significant endosonographic abnormality in the entire pancreas. No masses, no cysts, the pancreatic duct was thin in caliber. No lymphadenopathy seen. There was no sign of significant endosonographic abnormality in the left adrenal gland. No adrenal gland enlargement was identified. Impression: - Evidence of a cholecystectomy. - There was dilation in the common bile duct which measured up to 9.2 mm. - Hyperechoic material consistent with sludge and a stone was visualized endosonographically in the common bile duct. - There was no evidence of significant pathology in the left lobe of the liver. - There was no sign of significant pathology in the entire pancreas. - Endosonographic images of the left adrenal gland were unremarkable. - No specimens collected. Recommendation: - Perform an ERCP today. Jaiden Howell D.O. Jaiden Howell, 02/07/2017 4:05:45 PM This report has been signed electronically. Note Initiated On: 02/07/2017 3:12 PM I attest to the content of the Intraoperative Record and orders documented therein, exceptions below
--- NOTE | 2017-02-07 16:13 | GI REPORT ---
Procedure Date: 02/07/2017 3:32 PM Procedure: ERCP Indications: Abdominal pain of suspected biliary origin, Abnormal endoscopic ultrasound of the biliary system, Abnormal liver function test Medicines: General Anesthesia, Indocin 100 mg HI Complications: No immediate complications. Estimated blood loss: Minimal. Estimated Blood Loss: Estimated blood loss was minimal. Procedure: Pre-Anesthesia Assessment: - Prior to the procedure, a History and Physical was performed, and patient medications, allergies and sensitivities were reviewed. The patient's tolerance of previous anesthesia was reviewed. - The risks and benefits of the procedure and the sedation options and risks were discussed with the patient. All questions were answered and informed consent was obtained. - Patient identification and proposed procedure were verified prior to the procedure by the physician, the nurse and the piler. The procedure was verified in the procedure room. - Pre-procedure physical examination revealed no contraindications to sedation. - ASA Grade Assessment: III - A patient with severe systemic disease. - After reviewing the risks and benefits, the patient was deemed in satisfactory condition to undergo the procedure. - The anesthesia plan was to use general anesthesia. - Immediately prior to administration of medications, the patient was re-assessed for adequacy to receive sedatives. - The heart rate, respiratory rate, oxygen saturations, blood pressure, adequacy of pulmonary ventilation, and response to care were monitored throughout the procedure. - The physical status of the patient was re-assessed after the procedure. After obtaining informed consent, the scope was passed under direct vision. Throughout the procedure, the patient's blood pressure, pulse, and oxygen saturations were monitored continuously. The SCOPE was introduced through the mouth, and advanced to the duodenum and used to inject contrast into the bile duct. The ERCP was accomplished without difficulty. The patient tolerated the procedure well. Findings: A outsole compressor film of the abdomen was obtained. Surgical clips, consistent with previous cholecystectomy, were seen in the area of the right upper quadrant of the abdomen. The esophagus was successfully intubated under direct vision without detailed examination of the pharynx, larynx, and associated structures, and upper GI tract. The upper GI tract was grossly normal. The major papilla was bulging. The ventral pancreatic duct was inadvertently cannulated with the short-nosed traction sphincterotome (Omni 35) and 0.035 in Acrobat guidewire without any complications. This wire was left in place to aid with biliary cannulaiton (double wire technique). The bile duct was then deeply cannulated with the short-nosed traction sphincterotome (Omni 35) and 0.035 in Acrobat guidewire. Contrast was injected. I personally interpreted the bile duct images. Contrast extended to the hepatic ducts. The biliary orifice was stenotic. This appeared benign. The lower third of the main bile duct contained one stone, which was 9 mm in diameter. The main bile duct was moderately dilated. The largest diameter was 9 mm. Biliary sphincterotomy was made with a monofilament short-tip traction sphincterotome using ERBE electrocautery. There was no post-sphincterotomy bleeding. The lower third of the main bile duct was successfully dilated with an 8 mm balloon dilator held inflated for 3 minutes. To discover objects, the biliary tree was swept with a 12 mm balloon starting at the bifurcation several times. Sludge was swept from the duct. One hard pale pigmented stone was removed. No stones remained on occlusion cholangiogram. One 5 Fr by 7 cm pancreatic stent with a full external pigtail and no internal flaps was placed 7 cm into the ventral pancreatic duct. Clear fluid flowed through the stent(s). The stent was in good position. The total fluoroscopy exposure time was 1 minute and 11 seconds. The endoscope was withdrawn from the patient. Impression: - The major papilla appeared to be bulging. - Biliary papillary stenosis, benign. - The entire main bile duct was moderately dilated. - A sphincterotomy was performed. - The lower third of the main bile duct was successfully dilated to 8 mm - One prophylactic pancreatic stent was placed into the ventral pancreatic duct. - Choledocholithiasis was found. Complete removal was accomplished by biliary sphincterotomy and balloon extraction. Recommendation: - Avoid aspirin and nonsteroidal anti-inflammatory medicines for 1 week. - Clear liquid diet today. - Perform a flat plate abdominal x-ray in 2 weeks to ensure pancreatic stent passes. Jaiden Howell D.O. Jaiden Howell DO 02/07/2017 4:12:47 PM This report has been signed electronically. Note Initiated On: 02/07/2017 3:32 PM I attest to the content of the Intraoperative Record and orders documented therein, exceptions below
--- NOTE | 2017-02-07 16:26 | DIAGNOSTIC IMAGING REPORT ---
ERCP BILIARY DUCTAL CLINICAL HISTORY: ERCP IN OR COMPARISON STUDY: MRCP 02/06/2017. FLUOROSCOPY TIME: 1 minute and 11 seconds. FINDINGS: The endoscope is seen at the second portion of the duodenum. The ampulla was cannulated. A guidewire is placed in the common bile duct followed by contrast injection. The common bile duct is borderline distended. A balloon sweep was performed. There is also guidewire seen within the main pancreatic duct. There is placement of a main pancreatic duct stent. Cholecystectomy. 17 images submitted. IMPRESSION: Fluoroscopy provided for ERCP Electronically signed by: Mack Bullock M.D. 02/07/2017 4:25 PM Dictated Date/Time: 02/07/2017 4:23 PM
--- NOTE | 2017-02-07 16:38 | Anesthesiology Progress Note ---
Anesthesia Post Op Note Date & Time Feb 07, 2017 at 16:38 Vital Signs Pain Intensity: 0 Vital Signs Past 12 Hours Date Time Temp Pulse Resp B/P (MAP) Pulse Ox O2 Delivery O2 Flow Rate FiO2 02/07/17 16:21 67 17 159/95 100 Oxymask 10 02/07/17 16:12 36.8 66 17 154/102 100 Oxymask 10 02/07/17 08:30 Room Air 02/07/17 06:55 36.5 63 16 125/80 (95) 93 Room Air Notes Mental Status: alert / awake / arousable, participated in evaluation Pt Amnestic to Procedure: Yes Nausea / Vomiting: adequately controlled Pain: adequately controlled Airway Patency, RR, SpO2: stable & adequate BP & HR: stable & adequate Hydration State: stable & adequate Anesthetic Complications: no major complications apparent
[2017-02-07] MEDS: TRAMADOL HCL 50 MG TAB PO PRN (20:25)
[2017-02-07] MEDS ORDERED: AMLODIPINE BESYLATE 5 MG TAB PO ONE (21:00)
[2017-02-08] MEDS: LACTATED RINGER'S 1000ML 1,000 ML IV SCH ×2 (02:40→08:05)
[2017-02-08 03:14] VITALS: BP 127/83; PULSE 66; TEMP 36.4; O2SAT 96
[2017-02-08] MEDS: TRAMADOL HCL 50 MG TAB PO PRN (05:46)
[2017-02-08 06:26] LABS: BASO % 0.1 %; BASO ABS # 0.01 K/uL (0-0.2); COMPLETE YES; EOS % 0.1 %; HEMATOCRIT 43.1 % (37-47); IG% 0.2 %; LYMPH % 12.6 %; LYMPH ABS # 1.25 K/uL (1.2-3.4); MEAN CORPUSCULAR HEMOGLOBIN 28.1 pg (25-34); MEAN CORPUSCULAR HGB CONC 32.7 g/dl (32-36); MEAN PLATELET VOLUME 11.5 fL (7.4-10.4); MONO % 3.2 %; NEUT % 83.8 %; PLATELET COUNT 269 K/uL (130-400); RED BLOOD COUNT 5.01 M/uL (4.2-5.4); WHITE BLOOD COUNT 9.95 K/uL (4.8-10.8)
[2017-02-08 06:57] LABS: BUN/CREATININE RATIO 10.2 (10-20); CALCIUM 8.5 mg/dl (8.5-10.1); CREATININE 0.48 mg/dl (0.60-1.20); MAGNESIUM 1.7 mg/dl (1.8-2.4); POTASSIUM 3.9 mmol/L (3.5-5.1)
[2017-02-08 07:18] VITALS: BP 127/81; PULSE 73; TEMP 36.7; O2SAT 98
[2017-02-08] MEDS: NICOTINE 7 MG/24 HR TDSY TD SCH (08:09)
[2017-02-08] MEDS: ENOXAPARIN 40 MG/0.4 ML SYR SQ SCH (08:58)
[2017-02-08] MEDS ORDERED: AMLODIPINE BESYLATE 5 MG TAB PO SCH (09:00)
[2017-02-08] MEDS: MAGNESIUM SULFATE 1GM / D5W 1 GM in PREMIXED IN D5W 100 ML IV SCH ×2 (09:03→10:04)
[2017-02-08] MEDS ORDERED: NURSING VERBAL MED ORDER ONE (11:15)
[2017-02-08] MEDS ORDERED: AMLO10TA2 PO (12:15)
[2017-02-08] MEDS ORDERED: NICO7DIS7 TD (12:15)
--- NOTE | 2017-02-08 12:27 | Discharge Instructions ---
Discharge Instructions Date of Service Feb 08, 2017. Admission Reason for Admission: Pancreatitis Discharge Discharge Diagnosis / Problem: Acute pancreatitis Discharge Goals Goal(s): Diagnostic testing Activity Recommendations Activity Limitations: per Instructions/Follow-up section . Instructions / Follow-Up Instructions / Follow-Up Please take all medications as instructed with changes above. It is recommended that you get an xray called a KUB in one week with results sent to Dr. Williams Howell ([facility]). This will be orchestrated through their office and someone should contact you on Friday about this. I recommend a PCP follow-up next week just for follow-up from this hospitalization. Someone from our group should be contacting you on Friday with a tentative time/date for this. It was a pleasure taking care of you! Call if you have any questions or problems. You can reach a [facility] hospitalist on duty at [facility] 24 hours a day by calling [phone]. Take care of yourself. Keli Perez, DO [facility] Hospitalist Current Hospital Diet Patient's current hospital diet: Regular Diet Discharge Diet Recommended Diet: AHA Diet (Heart Healthy) Procedures Procedures Performed: upper endoscopy, upper endoscopic ultrasound, endoscopic retrograde cholangiopancreatography with sphincterotomy and stone extraction, pancreatic stent placement Pending Studies Studies pending at discharge: no Medical Emergencies . Who to Call and When: Medical Emergencies: If at any time you feel your situation is an emergency, please call 911 immediately. . Non-Emergent Contact Non-Emergency issues call your: Primary Care Provider . . "Provider Documentation" section prepared by Keli Perez. . VTE Core Measure Inpt VTE Proph given/why not?: Enoxaparin (Lovenox)SQ
--- NOTE | 2017-02-08 12:41 | Discharge Summary ---
Discharge Summary Date of Service Feb 08, 2017. Discharge Summary Admission Date: Feb 06, 2017 at 21:35 Discharge Date: Feb 08, 2017 Discharge Disposition: Home Principal Diagnosis: Acute pancreatitis s/p ERCP with pancreatic stent HTN Hypokalemia-replaced Hypomagnesemia-replaced Tobacco use Procedures: MRCP ERCP with stent EUS Vaccinations: None. Consultations: GI Pending Studies/Follow-Up: see instructions below. Medication Reconciliation New Medications: Amlodipine Besylate (Norvasc) 10 Mg Tab 1 TAB PO DAILY for 30 Days, #30 TAB 0 Refills Nicotine (Nicoderm Cq 7 Mg Patch) 7 Mg/24 Hr Dis 1 PATCH TD QAM for 15 Days, #15 PATCH Continued Medications: Ibuprofen (Motrin) 600 Mg Tab 600 MG PO Q4 PRN for Headache or Pain, #15 TAB Discontinued Medications: Hydrochlorothiazide (Hydrochlorothiazide) 12.5 Mg Tab 12.5 MG PO DAILY Admission Information HPI (per Admitting provider): HISTORY OF PRESENT ILLNESS: Hx obtained from px and records. Medical history significant for hypertension, ongoing tobacco abuse. In the last 2 months, patient would have intermittent achy right upper quadrant pain w/ nausea, similar to gallbladder pain, unrelated to food, spontaneously resolving, would just last for a few hours. Yesterday, more constant pain, achy with nausea, no vomiting, no fever, no chills. Patient directed to the Emergency Room by PCP. Physical Exam (per Admitting): PHYSICAL EXAMINATION: VITAL SIGNS: Blood pressure was noted to be 150/80, pulse rate 70, RR 26, temperature 36.6, sats 98 on room air. GENERAL: Noted to be slightly uncomfortable, no resp distress. SKIN: Normal color. HEENT: Morris palpebral conjunctivae. Dry mucosa. NECK: No JVD. Supple. CHEST: Clear to auscultation. HEART: Regular rate and rhythm. ABDOMEN: Epigastric tenderness. EXTREMITIES: No edema. no tenderness NEUROLOGIC: No gross focality. Hospital Course 36 yo F with acute pancreatitis. She was admitted to the floor for supportive care and IVF. An MRCP was performed revealing mild biliary ductal dilatation status post cholecystectomy. No common bile duct calculi was identified. GI was consulted and performed an EUS which revealed some sludge in the main pancreatic duct. She then underwent an ERCP and a stent was placed in the main pancreatic duct with subsequent improvement in pain. Of note, although she had been given HCTZ at a recent appointment, she hadn't started this. She also admits to rarely using alcohol, another common cause. Her blood pressure robyn to around 180/100 and Norvasc was started along with continued pain control. She was strongly encouraged to stop smoking and a Nicotine patch was prescribed at discharge. By day of discharge she was hemodynamically stable with some expected abdominal soreness to palpation but was tolerating PO without difficulty. She was also ambulating at baseline. She was discharged in stable condition with close PCP follow-up. ADDENDUM: The patient was contacted by phone on 02/10 with her appointment follow-up. When asked how she was doing she stated that as she became more ambulatory, her abdominal pain increased and Motrin 600mg "wasn't touching it." We discussed giving her Percocet, however, this couldn't be phoned in so she was given T#3 instead (disp 10 pills, RF 0) Total time spent on discharge = 60 minutes This includes examination of the patient, discharge planning, medication reconciliation, and communication with other providers. Discharge Instructions Discharge Instructions Date of Service Feb 08, 2017. Admission Reason for Admission: Pancreatitis Discharge Discharge Diagnosis / Problem: Acute pancreatitis Discharge Goals Goal(s): Diagnostic testing Activity Recommendations Activity Limitations: per Instructions/Follow-up section . Instructions / Follow-Up Instructions / Follow-Up Please take all medications as instructed with changes above. It is recommended that you get an xray called a KUB in one week with results sent to Dr. Williams Howell ([facility]). This will be orchestrated through their office and someone should contact you on Friday about this. I recommend a PCP follow-up next week just for follow-up from this hospitalization. Someone from our group should be contacting you on Friday with a tentative time/date for this. It was a pleasure taking care of you! Call if you have any questions or problems. You can reach a [facility] hospitalist on duty at 24 hours a day by calling [phone]. Take care of yourself. Keli Perez, DO [facility] Hospital[facility] Additional Copies To Annalise Cota D.O.
[2017-02-08 12:54] VITALS: BP 127/81; PULSE 73; TEMP 36.7; O2SAT 98
== END 2017-02-08 13:32 | disposition home or self-care (01) | DRG 444 ==
LOC: C.EDB 16:15 → C.3E 21:35 → ENRESERV 22:00
PROVIDERS: ADMIT Hospitalist; ATTEND Hospitalist
PROC: 0DJ08ZZ Inspection of Upper Intestinal Tract, Via Natural or Artificial Opening Endoscopic (ICD-10-PCS; principal; 2017-02-07 13:00)
PROC: 0F798DZ Dilation of Common Bile Duct with Intraluminal Device, Via Natural or Artificial Opening Endoscopic (ICD-10-PCS; 2017-02-07 13:00)
PROC: BF111ZZ Fluoroscopy of Biliary and Pancreatic Ducts using Low Osmolar Contrast (ICD-10-PCS; 2017-02-07 13:00)
PROC: 0FC98ZZ Extirpation of Matter from Common Bile Duct, Via Natural or Artificial Opening Endoscopic (ICD-10-PCS; 2017-02-07 13:00)
DX: K80.50 Calculus of bile duct without cholangitis or cholecystitis without obstruction (principal); K85.10 Biliary acute pancreatitis without necrosis or infection; E87.6 Hypokalemia; E83.42 Hypomagnesemia; I10 Essential (primary) hypertension; F17.210 Nicotine dependence, cigarettes, uncomplicated; Z90.49 Acquired absence of other specified parts of digestive tract; Z79.899 Other long term (current) drug therapy; Z88.6 Allergy status to analgesic agent

== ENCOUNTER 2017-08-29 14:16 | Emergency (ER) | payer OTHER ==
[~2017-08-29] VITALS: Ht 165.1 cm; Wt 69.6 kg
[~2017-08-29 14:16] MED LIST changes: +AMLO10TA2 PO; +NICO7DIS7 TD; -PRENTAB26 PO
[2017-08-29 14:18] VITALS: TEMP 36.5; Ht 165.1 cm; Wt 69.6 kg
--- NOTE | 2017-08-29 15:07 | DIAGNOSTIC IMAGING REPORT ---
RIGHT INDEX FINGER 3 VIEWS CLINICAL HISTORY: Pain status post trauma COMPARISON: None DISCUSSION: There is subtle cortical irregularity involving the tuft of distal phalanx. A nondisplaced fracture is suspected. There are no dislocations. IMPRESSION: Suspected subtle nondisplaced fracture involving the tuft of the distal phalanx. Overlying soft tissue swelling. No dislocation. Electronically signed by: Jonathan Acosta M.D. 08/29/2017 3:06 PM Dictated Date/Time: 08/29/2017 3:04 PM
[2017-08-29] MEDS ORDERED: OXYC-57 PO (15:22)
--- NOTE | 2017-08-29 15:23 | EMERGENCY ROOM VISIT NOTE ---
ED Visit Note First contact with patient: 14:21 CHIEF COMPLAINT: Right second finger injury yesterday HISTORY OF PRESENT ILLNESS: Patient is a [id number] 36-year-old white female who presents to the emergency department for evaluation of a crush injury to the right second finger when she accidentally closed her finger in the car door. She notes that she had a small skin flap at the base of the nail. She applied antibiotic ointment and a bandage to the finger. She notes swelling of the tip of her finger bruising in the nailbed and is unable to move the finger due to pain. Patient has been taking ibuprofen without relief. She rates her pain a 7/10. She denies any numbness or tingling. REVIEW OF SYSTEMS: Review of systems as per HPI. All other systems reviewed were negative. At least 6 systems reviewed. PMH: Electronic medical records are reviewed and summarized as above/below. See Problem List. She reports that her tetanus is up-to-date. SOCIAL HISTORY: Patient lives at home with her children. Smoker. PHYSICAL EXAM: Vital Signs: Reviewed Nurse's notes. CONSTITUTIONAL: Patient is a pleasant, well-appearing 36-year-old white female who is awake and alert and in no acute distress. MUSCULOSKELETAL: Examination of the right second finger show a well approximated skin flap-type skin injury on the dorsum of the finger , just proximal to the nail. There is slight bruising at the base of the nail, no subungual hematoma is appreciated. She has swelling and bruising in the finger pad, and tenderness at the DIP joint. PIP joint is also tender although less then the DIP, and she is completely unable to flex at the DIP or the PIP. MCP joint is nontender and range of motion is full. Skin is otherwise intact. Capillary refills less than 2 seconds. Sensation is intact. EMERGENCY DEPARTMENT COURSE: X-rays of the right second finger were obtained, and there is suspicion for a tiny tuft fracture. No intra-articular injury noted. Patient's wound was cleansed and dressed and she was placed in a metal finger splint for support and comfort. Conservative care measures were discussed. Splint as needed for support, perform gentle stretching and range of motion exercises when pain has improved. Wound care measures as outlined, and watch for signs of infection. She does not have a drainable subungual hematoma. Differential diagnosis included fracture, dislocation, contusion, crush injury, among others. She was given a prescription for Percocet for pain. Medication reconciliation: I attest that I have personally reviewed the patient' s current medication list. Patient was reviewed in the [facility] Prescription Drug Monitoring Program, and there were no red flags noted. Blood pressure screening: Patient was found to have a slightly elevated blood pressure due to circumstances. I do not believe that the patient requires hypertension monitoring. RIGHT INDEX FINGER 3 VIEWS CLINICAL HISTORY: Pain status post trauma COMPARISON: None DISCUSSION: There is subtle cortical irregularity involving the tuft of distal phalanx. A nondisplaced fracture is suspected. There are no dislocations. IMPRESSION: Suspected subtle nondisplaced fracture involving the tuft of the distal phalanx. Overlying soft tissue swelling. No dislocation. Problem List Medical Problems: (1) Acute cholecystitis Status: Resolved (2) Biliary obstruction Status: Resolved (3) Cholecystitis Status: Resolved (4) Cholecystitis Status: Resolved (5) Edema Status: Resolved (6) Hypertension Status: Chronic (7) Lower Leg Injury Nos Status: Resolved (8) Pancreatitis Status: Resolved (9) Sprain Of Foot Nos Status: Resolved Surgical Problems: (1) H/O tubal ligation Status: Resolved (2) S/P cholecystectomy Status: Resolved Current/Historical Medications Scheduled PRN Oxycodone/Acetaminophen 5MG/325MG (Percocet 5MG/325MG), 1-2 TABS PO Q4 PRN for Pain Allergies Coded Allergies: Acetaminophen (Unverified Allergy, Unknown, DIZZINESS AND VERTIGO, 02/06/17 ) Diphenhydramine (Unverified Allergy, Unknown, UNKNOWN, 02/06/17) Penicillins (Unverified Allergy, Unknown, UNKNOWN, 02/06/17) Vital Signs Date Time Temp Pulse Resp B/P (MAP) Pulse Ox O2 Delivery O2 Flow Rate FiO2 08/29/17 15:37 74 20 139/91 96 08/29/17 14:18 36.5 73 18 146/96 99 Room Air Departure Information Impression Primary Impression: Closed fracture of tuft of distal phalanx of finger Prescriptions Oxycodone/Acetaminophen 5MG/325MG (PERCOCET 5MG/325MG) Tab 1-2 TABS PO Q4 Y for Pain, #15 TAB For Initial Treatment Prov: Marichuy Vergara PA 08/29/17 Referrals Annalise Cota D.O. (PCP) Patient Instructions My [facility] Additional Instructions Percocet 5/325 mg: Take 1-2 pills every four hours for breakthrough pain. Avoid alcohol, operating machinery or dangerous equipment, working on ladders or roofs, DRIVING, or situations where being under the influence may be dangerous. It is recommended to use an sedy-vai-kxcbbnc stool softener such as Colace, 100mg twice daily while taking this medication to avoid constipation. Ibuprofen(Motrin, Advil) may be used for fever or pain. Use 600mg every six hours as needed. Take with food. Avoid using more than 2400mg in a 24 hour period. Do not use 2400mg per day for more than three consecutive days without physician direction. Prolonged inappropriate use can lead to stomach upset or ulcers. This medication can be taken if you need to drive, work, or perform activities which may be dangerous when taking narcotic pain medication. (AND/OR) Acetaminophen(Tylenol) may be used for fever or pain. Use 1000mg every six hours as needed. Avoid using more than 3000mg in a 24 hour period. This medication can be taken if you need to drive, work, or perform activities which may be dangerous when taking narcotic pain medication. Ice compresses for 20 minutes at a time four times daily for 2-3 days. Dressing changes daily, clean the area with mild soap and water. Cover with a bandage and antibiotic ointment until healed. Watch for signs of infection. Use the metal finger splint as instructed. May remove it for bathing, wound care and gentle range of motion exercises. Rest and elevate your injury. May resume normal activity as pain allows. Continue current medications. Return to the ER immediately for any numbness, tingling, severe pain, extreme swelling in the extremity or as needed. Follow-up with orthopedics if your symptoms are not improving in the next 7-10 days.
[2017-08-29 15:37] VITALS: BP 139/91; PULSE 74; O2SAT 96
== END 2017-08-29 15:34 | disposition home or self-care (01) ==
LOC: C.EDB 14:17 → C.EDD 15:34
DX: S62.630A Displaced fracture of distal phalanx of right index finger, initial encounter for closed fracture (principal); W23.0XXA Caught, crushed, jammed, or pinched between moving objects, initial encounter; F17.200 Nicotine dependence, unspecified, uncomplicated; I10 Essential (primary) hypertension; Z90.49 Acquired absence of other specified parts of digestive tract; Z98.51 Tubal ligation status

== ENCOUNTER 2017-11-15 19:57 | Observation (INO) | payer OTHER ==
[~2017-11-15] VITALS: Ht 162.6 cm; Wt 68.5 kg
[~2017-11-15 19:57] MED LIST changes: -AMLO10TA2 PO; -IBUP-1450 PO; -NICO7DIS7 TD; +OXYC-57 PO
[2017-11-15] MEDS ORDERED: TRAZ50TA35 PO (20:37)
[2017-11-15 20:50] LABS: BASO % 0.2 %; BASO ABS # 0.04 K/uL (0-0.2); EOS % 0.5 %; EOS ABS # 0.11 K/uL (0-0.5); HEMATOCRIT 48.5 % (37-47); HEMOGLOBIN 16.6 g/dL (12.0-16.0); IG# 0.09 K/uL (0.00-0.02); LYMPH % 7.3 %; LYMPH ABS # 1.49 K/uL (1.2-3.4); MEAN CORPUSCULAR HEMOGLOBIN 30.5 pg (25-34); MEAN CORPUSCULAR HGB CONC 34.2 g/dl (32-36); MEAN PLATELET VOLUME 10.2 fL (7.4-10.4); MONO % 6.9 %; NEUT % 84.7 %; NEUT ABS # 17.23 K/uL (1.4-6.5); PLATELET COUNT 292 K/uL (130-400); RED CELL DISTRIBUTION WIDTH CV 13.8 % (11.5-14.5); RED CELL DISTRIBUTION WIDTH SD 44.9 fL (36.4-46.3); WHITE BLOOD COUNT 20.36 K/uL (4.8-10.8)
[2017-11-15] MEDS ORDERED: SODIUM CHLORIDE 0.9% 1000ML 1,000 ML IV STA (20:57)
[2017-11-15] MEDS ORDERED: ONDANSETRON INJ 2 MG/ML 2 ML VIAL IV STA (20:57)
[2017-11-15] MEDS ORDERED: PANTOprazole INJ 40 MG in SYRINGE 0 ML IV ONE (21:00)
[2017-11-15 21:01] LABS: ALBUMIN 4.1 gm/dl (3.4-5.0); CREATININE 0.72 mg/dl (0.60-1.20); POTASSIUM 3.6 mmol/L (3.5-5.1)
[2017-11-15 21:04] LABS: TOTAL PROTEIN 8.3 gm/dl (6.4-8.2)
[2017-11-15] MEDS: MoRPHine SULFATE 4 MG/ML 1 ML CARP\\VIAL IV PRN ×2 (21:10→23:42)
--- NOTE | 2017-11-15 21:30 | DIAGNOSTIC IMAGING REPORT ---
ABD/PELVIS NO IV OR ORAL CONT CT DOSE: 284.86 mGy.cm HISTORY: Pain. Nausea. hx of pancreatitis TECHNIQUE: Multiaxial CT images of the abdomen and pelvis were performed without contrast. A dose lowering technique was utilized adhering to the principles of ALARA. COMPARISON STUDY: 02/06/2017 FINDINGS: Lung bases are clear. Prior cholecystectomy. Liver is uniform. Spleen is unremarkable. Pancreas is considered unremarkable. Kidneys negative for calcification or hydronephrosis. Nonobstructive bowel pattern. Normal appendix. Findings of mild wall thickening of the sigmoid colon. No evidence for abscess collection or obstruction. IMPRESSION: 1. Mild wall edema of the sigmoid consistent with a nonspecific colitis. 2. No evidence for abscess collection or obstruction. 3. All remaining components of the study are unremarkable postcholecystectomy. 4. The pancreas specifically is unremarkable. The above report was generated using voice recognition software. It may contain grammatical, syntax or spelling errors. Electronically signed by: Ángel Phillips M.D. 11/15/2017 9:28 PM Dictated Date/Time: 11/15/2017 9:26 PM
--- NOTE | 2017-11-15 22:32 | DIAGNOSTIC IMAGING REPORT ---
CHEST ONE VIEW PORTABLE CLINICAL HISTORY: epigastric pain pain COMPARISON STUDY: 01/04/2014 FINDINGS: The bones soft tissues and hemidiaphragms are normal. The cardiomediastinal silhouette is normal. The lungs are clear. The pulmonary vasculature is normal. IMPRESSION: Negative chest. The above report was generated using voice recognition software. It may contain grammatical, syntax or spelling errors. Electronically signed by: Ángel Phillips M.D. 11/15/2017 10:30 PM Dictated Date/Time: 11/15/2017 10:30 PM
[2017-11-16] MEDS ORDERED: ONDANSETRON INJ 2 MG/ML 2 ML VIAL IV PRN
--- NOTE | 2017-11-16 00:03 | EMERGENCY ROOM VISIT NOTE ---
History Report prepared by Nyasia: Tamara Taylor Under the Supervision of: Dr. Jose Olivares D.O. First contact with patient: 20:10 Chief Complaint: ABDOMINAL PAIN Stated Complaint: UPPER STOMACH PAIN AND SOME CHEST PAINS History of Present Illness The patient is a 37 year old female who presents to the Emergency Room with complaints of intermittent upper abdominal pain starting 1600 today. She last had the pain 5 minutes ago. She had this pain before prior to her cholecystectomy. She reports feeling hot and cold. She is vomiting. She also reports that she had chest pain last night. She denies any blood in her stool. She has had a tubal ligation. She admits to smoking and occasional alcohol use. Her last period was 2.5 weeks ago with normal timing. She still has her appendix. Source of History: patient Onset: 1600 Position: abdomen (upper) Symptom Intensity: 8/10 Quality: other (gallbladder pain) Timing: intermittent Associated Symptoms: + chills, + chest pain, + vomiting, No hematochezia Review of Systems See HPI for pertinent positives & negatives. A total of 10 systems reviewed and were otherwise negative. Past Medical & Surgical Medical Problems: (1) Abdominal pain (2) Acute cholecystitis (3) Biliary obstruction (4) Cholecystitis (5) Cholecystitis (6) Edema (7) Hypertension (8) Leukocytosis (9) Lower Leg Injury Nos (10) Pancreatitis (11) Sprain Of Foot Nos Surgical Problems: (1) H/O tubal ligation (2) S/P cholecystectomy Family History Cancer Social History Smoking Status: Current Every Day Smoker Marital Status: Housing Status: lives with significant other Occupation Status: unemployed Current/Historical Medications Scheduled PRN Trazodone Hcl (Trazodone), Unknown Dose PO HS PRN for Sleep Allergies Coded Allergies: Acetaminophen (Unverified Allergy, Unknown, DIZZINESS AND VERTIGO, 11/15/17 ) Diphenhydramine (Unverified Allergy, Unknown, UNKNOWN, 11/15/17) Penicillins (Unverified Allergy, Unknown, UNKNOWN, 11/15/17) Physical Exam Vital Signs Date Time Temp Pulse Resp B/P (MAP) Pulse Ox O2 Delivery O2 Flow Rate FiO2 11/15/17 23:29 92 18 110/66 95 Room Air 11/15/17 21:37 78 18 105/60 98 Room Air 11/15/17 20:05 36.6 80 18 121/86 95 Room Air Physical Exam GENERAL: Patient is awake, alert, somewhat anxious and uncomfortable appearing. EYES: The conjunctivae are clear. The pupils are round and reactive. EARS, NOSE, MOUTH AND THROAT: The nose is without any evidence of any deformity. Mucous membranes are moist tongue is midline NECK: The neck is nontender and supple. RESPIRATORY: Normal respiratory effort is noted there is no evidence of wheezing rhonchi or rales CARDIOVASCULAR: Regular rate and rhythm noted there no murmurs rubs or gallops normal S1 normal S2 GASTROINTESTINAL: The abdomen is soft with epigastric tenderness to palpation. No guarding or rigidity noted. MUSCULOSKELETAL/EXTREMITIES: There is no evidence of gross deformity full range of motion is noted in the hips and shoulders SKIN: There is no obvious evidence of any rash. There are no petechiae, pallor or cyanosis noted. NEUROLOGIC: Patient is awake alert and oriented x3 Medical Decision & Procedures ER Provider Diagnostic Interpretation: X-ray results as stated below per interpretation by me and the radiologist. Radiology results as stated below per my review and radiologist interpretation: CHEST ONE VIEW PORTABLE CLINICAL HISTORY: epigastric pain pain COMPARISON STUDY: 01/04/2014 FINDINGS: The bones soft tissues and hemidiaphragms are normal. The cardiomediastinal silhouette is normal. The lungs are clear. The pulmonary vasculature is normal. IMPRESSION: Negative chest. The above report was generated using voice recognition software. It may contain grammatical, syntax or spelling errors. Electronically signed by: Ángel Phillips M.D. 11/15/2017 10:30 PM Dictated Date/Time: 11/15/2017 10:30 PM ABD/PELVIS NO IV OR ORAL CONT CT DOSE: 284.86 mGy.cm HISTORY: Pain. Nausea. hx of pancreatitis TECHNIQUE: Multiaxial CT images of the abdomen and pelvis were performed without contrast. A dose lowering technique was utilized adhering to the principles of ALARA. COMPARISON STUDY: 02/06/2017 FINDINGS: Lung bases are clear. Prior cholecystectomy. Liver is uniform. Spleen is unremarkable. Pancreas is considered unremarkable. Kidneys negative for calcification or hydronephrosis. Nonobstructive bowel pattern. Normal appendix. Findings of mild wall thickening of the sigmoid colon. No evidence for abscess collection or obstruction. IMPRESSION: 1. Mild wall edema of the sigmoid consistent with a nonspecific colitis. 2. No evidence for abscess collection or obstruction. 3. All remaining components of the study are unremarkable postcholecystectomy. 4. The pancreas specifically is unremarkable. The above report was generated using voice recognition software. It may contain grammatical, syntax or spelling errors. Electronically signed by: Ángel Phillips M.D. 11/15/2017 9:28 PM Dictated Date/Time: 11/15/2017 9:26 PM Laboratory Results 11/15/17 20:30 Red Blood Count 5.45, Mean Corpuscular Volume 89.0, Mean Corpuscular Hemoglobin 30.5, Mean Corpuscular Hemoglobin Concent 34.2, Mean Platelet Volume 10.2, Neutrophils (%) (Auto) 84.7, Lymphocytes (%) (Auto) 7.3, Monocytes (%) (Auto) 6.9, Eosinophils (%) (Auto) 0.5, Basophils (%) (Auto) 0.2, Neutrophils # (Auto) 17.23, Lymphocytes # (Auto) 1.49, Monocytes # (Auto) 1.40, Eosinophils # (Auto) 0.11, Basophils # (Auto) 0.04 11/15/17 20:30 Test 11/15/17 20:30 11/15/17 23:23 11/15/17 23:41 11/15/17 23:43 White Blood Count 20.36 K/uL (4.8-10.8) Red Blood Count 5.45 M/uL (4.2-5.4) Hemoglobin 16.6 g/dL (12.0-16.0) Hematocrit 48.5 % (37-47) Mean Corpuscular Volume 89.0 fL (80-100) Mean Corpuscular Hemoglobin 30.5 pg (25-34) Mean Corpuscular Hemoglobin Concent 34.2 g/dl (32-36) Platelet Count 292 K/uL (130-400) Mean Platelet Volume 10.2 fL (7.4-10.4) Neutrophils (%) (Auto) 84.7 % Lymphocytes (%) (Auto) 7.3 % Monocytes (%) (Auto) 6.9 % Eosinophils (%) (Auto) 0.5 % Basophils (%) (Auto) 0.2 % Neutrophils # (Auto) 17.23 K/uL (1.4-6.5) Lymphocytes # (Auto) 1.49 K/uL (1.2-3.4) Monocytes # (Auto) 1.40 K/uL (0.11-0.59) Eosinophils # (Auto) 0.11 K/uL (0-0.5) Basophils # (Auto) 0.04 K/uL (0-0.2) RDW Standard Deviation 44.9 fL (36.4-46.3) RDW Coefficient of Variation 13.8 % (11.5-14.5) Immature Granulocyte % (Auto) 0.4 % Immature Granulocyte # (Auto) 0.09 K/uL (0.00-0.02) Erythrocyte Sedimentation Rate 26 mm/hr (0-21) Urine Color DK YELLOW Urine Appearance CLEAR (CLEAR) Urine pH 5.0 (4.5-7.5) Urine Specific [place] 1.020 (1.000-1.030) Urine Protein NEG (NEG) Urine Glucose (UA) NEG (NEG) Urine Ketones NEG (NEG) Urine Occult Blood NEG (NEG) Urine Nitrite NEG (NEG) Urine Bilirubin NEG (NEG) Urine Urobilinogen NEG (NEG) Urine Leukocyte Esterase TRACE (NEG) Urine WBC (Auto) 5-10 /hpf (0-5) Urine RBC (Auto) 0-4 /hpf (0-4) Urine Hyaline Casts (Auto) 1-5 /lpf (0-5) Urine Epithelial Cells (Auto) >30 /lpf (0-5) Urine Bacteria (Auto) 1+ (NEG) Anion Gap 6.0 mmol/L (3-11) Est Creatinine Clear Calc Drug Dose 101.5 ml/min Estimated GFR () 124.0 Estimated GFR (Non- 107.0 BUN/Creatinine Ratio 10.4 (10-20) Calcium Level 9.0 mg/dl (8.5-10.1) Total Bilirubin 0.6 mg/dl (0.2-1) Aspartate Amino Transf (AST/SGOT) 16 U/L (15-37) Alanine Aminotransferase (ALT/SGPT) 21 U/L (12-78) Alkaline Phosphatase 99 U/L (45-117) Total Protein 8.3 gm/dl (6.4-8.2) Albumin 4.1 gm/dl (3.4-5.0) Globulin 4.2 gm/dl (2.5-4.0) Albumin/Globulin Ratio 1.0 (0.9-2) Lipase 117 U/L (73-393) Human Chorionic Gonadotropin, Qual NEG (NEG) Test 11/15/17 23:44 11/15/17 23:45 Laboratory results per my review. Medications Administered Medications (Trade) Dose Ordered Sig/Janeen Route Start Time Stop Time Status Last Admin Dose Admin Sodium Chloride 1,000 ml @ 999 mls/hr Q1H1M STAT IV 11/15/17 20:57 11/15/17 21:57 DC 11/15/17 21:10 999 MLS/HR Pantoprazole Sodium 40 mg/ Syringe 10 ml @ 5 mls/min NOW ONCE IV 11/15/17 21:00 11/15/17 21:01 DC 11/15/17 21:35 5 MLS/MIN Morphine Sulfate (MoRPHine SULFATE INJ) 4 mg Q15M PRN IV 11/15/17 21:00 11/29/17 20:59 11/15/17 23:42 4 MG Ondansetron HCl (Zofran Inj) 4 mg NOW STAT IV 11/15/17 20:57 11/15/17 20:59 DC 11/15/17 21:10 4 MG ECG Per My Interpretation Indication: chest pain Rate (beats per minute): 86 Rhythm: normal sinus Findings: no ectopy, other (no acute ST segment abnormality) Comparison ECG Date: 06-Feb-2017 Change: no significant change ED Course 2055: The patient was evaluated in room C11B. A complete history and physical examination were performed. 2056: Zofran Inj 4 mg IV, NSS 1000 ml @ 999 mls/hr IV. 2099: Morphine Sulfate 4 mg IV, Pantoprazole Sodium 40 mg/Syringe 10 ml @ 5 mls/ min IV. 3: Upon reevaluation, the patient is stable. I discussed results and treatment plan with her. She verbalizes agreement and understanding. The patient will be evaluated for further management and care. 2320: I discussed the patient's case with Dr. Jacobo [facility] hospitalist. The patient will be evaluated for further management. Medical Decision Prior records/ancillary studies reviewed. Triage Nursing notes reviewed. Differential diagnosis: Etiologies such as appendicitis, diverticulitis, PUD, biliary pathology, UTI, pancreatitis, obstruction, mesenteric ischemia, aortic pathology, infections, inflammatory bowel disease, renal colic, as well as others were entertained. The patient is a 37-year-old female who presented to the emergency department for an evaluation of epigastric abdominal pain. The patient has a history of pancreatitis but at this time her lipase is normal. Her history and physical exam appear to be consistent with pancreatitis however her radiographic studies and her laboratory studies do not appear to be consistent with this. She was treated with IV fluids IV pain medicine and IV anti-medics. On subsequent reevaluation she was only minimally improved. She appears to have a very elevated white blood cell count. For this reason [facility] have agreed to evaluate the patient in the emergency department for further management and disposition. Medication Reconcilliation Current Medication List: was personally reviewed by me Blood Pressure Screening Patient's blood pressure: Normal blood pressure Blood pressure disposition: Did not require urgent referral Consults Time Called: 2316 Consulting Physician[facility] Return[facility] Call: [phone] I discussed the patient's case with him. The patient will be evaluated for further management. Impression Primary Impression: Epigastric abdominal pain Additional Impressions: Elevated WBC count Chest pain Scribe Attestation The scribe's documentation has been prepared under my direction and personally reviewed by me in its entirety. I confirm that the note above accurately reflects all work, treatment, procedures, and medical decision making performed by me. Departure Information Dispostion Being Evaluated By Hospitalist Referrals Annalise Cota D.O. (PCP) Patient Instructions My [facility] Problem Qualifiers Additional Impressions: Elevated WBC count Leukocytosis type: unspecified Qualified Codes: D72.829 - Elevated white blood cell count, unspecified Chest pain Chest pain type: unspecified Qualified Codes: R07.9 - Chest pain, unspecified
[2017-11-16] MEDS ORDERED: IV FLUIDS COMPLETED PRN (00:15)
--- NOTE | 2017-11-16 00:30 | History and Physical ---
History & Physical Date & Time of Service: Nov 16, 2017 at 00:24 Chief Complaint: Upper Stomach Pain And Some Chest Pains Primary Care Physician: Annalise Cota D.O. History of Present Illness This is a 37 year old F who in 02/07/17 had ERCP with sphincterectomy and stone extraction and pancreatic stent placement at [facility] who presents on 11/15/17 with abdominal pain primarily of upper epigastrium and leukocytosis of 20,000 Symptoms began earlier in the day of 11/15/17. Patient denies history of fever, pain or gastric reflux symptoms associated with food. Denies pain radiating elsewhere to chest. Denies shortness of breath. Denies problems with urination or with bowel movements. She did have symptoms of nausea associated with the upper epigastric pain and vomited. Vomitus was yellow in color but she was recently drinking soda at the time. Patient denies recent history of antibiotic use of steroid use. Only has been taking Trazodone intermittently. Denies alcohol misuse. Denies recreational drug use. Smokes tobacco. Past Medical/Surgical History Medical Problems: (1) Abdominal pain (2) Acute cholecystitis (3) Biliary obstruction (4) Cholecystitis (5) Cholecystitis (6) Closed fracture of tuft of distal phalanx of finger (7) Edema (8) Hypertension (9) Leukocytosis (10) Lower Leg Injury Nos (11) Pancreatitis (12) Sprain Of Foot Nos Surgical Problems: (1) H/O tubal ligation (2) S/P cholecystectomy Family History Cancer Social History Smoking Status: Current Every Day Smoker Marital Status: Occupational Status: unemployed Allergies Coded Allergies: Acetaminophen (Unverified Allergy, Unknown, DIZZINESS AND VERTIGO, 11/15/17 ) Diphenhydramine (Unverified Allergy, Unknown, UNKNOWN, 11/15/17) Penicillins (Unverified Allergy, Unknown, UNKNOWN, 11/15/17) Home Medications Scheduled PRN Trazodone Hcl (Trazodone), Unknown Dose PO HS PRN for Sleep Review of Systems Constitutional: No fever, No chills Eyes: No worsening of vision, No diplopia ENT: No hearing loss, No nasal symptoms, No sore throat, No trouble swallowing Respiratory: No cough, No shortness of breath Cardiovascular: No chest pain, No edema, No palpitations Abdomen: + pain, + nausea, + vomiting, No diarrhea, No constipation, No GI bleeding Musculoskeletal: No joint pain, No muscle pain, No swelling, No calf pain Genitourinary - Female: No dysuria Neurologic: No weakness, No numbness/tingling Psychiatric: No substance abuse Hematologic / Lymphatic: No abnormal bleeding/bruising Integumentary: No rash, No itch Physical Exam Vital Signs Date Time Temp Pulse Resp B/P (MAP) Pulse Ox O2 Delivery O2 Flow Rate FiO2 11/15/17 23:29 92 18 110/66 95 Room Air 11/15/17 21:37 78 18 105/60 98 Room Air 11/15/17 20:05 36.6 80 18 121/86 95 Room Air General Appearance: no apparent distress Head: normocephalic, atraumatic Eyes: normal inspection, EOMI, sclerae normal ENT: normal ENT inspection, hearing grossly normal, pharynx normal Neck: supple, no JVD, trachea midline Respiratory/Chest: chest non-tender, lungs clear, normal breath sounds, no respiratory distress, no accessory muscle use Cardiovascular: regular rate, rhythm, no edema, no JVD, no murmur, normal peripheral pulses Abdomen/GI: normal bowel sounds, soft, no organomegaly, no pulsatile mass, + tenderness (tenderness of upper epigrastrum) Back: normal inspection, no muscle spasm, normal range of motion, + pertinent finding (when assessing for left CVA tenderness, patient reported pain of left flank in the back and front of abdomen) Extremities/Musculoskelatal: normal inspection, no calf tenderness, normal capillary refill, no pedal edema, normal range of motion Neurologic/Psych: alert, normal mood/affect, oriented x 3 Skin: normal color, warm/dry, no rash Diagnostics Laboratory Results Results Past 24 Hours Test 11/15/17 20:30 11/15/17 23:23 11/15/17 23:41 11/15/17 23:43 Range/Units White Blood Count 20.36 4.8-10.8 K/uL Red Blood Count 5.45 4.2-5.4 M/uL Hemoglobin 16.6 12.0-16.0 g/dL Hematocrit 48.5 37-47 % Mean Corpuscular Volume 89.0 80-100 fL Mean Corpuscular Hemoglobin 30.5 25-34 pg Mean Corpuscular Hemoglobin Concent 34.2 32-36 g/dl Platelet Count 292 130-400 K/uL Mean Platelet Volume 10.2 7.4-10.4 fL Neutrophils (%) (Auto) 84.7 % Lymphocytes (%) (Auto) 7.3 % Monocytes (%) (Auto) 6.9 % Eosinophils (%) (Auto) 0.5 % Basophils (%) (Auto) 0.2 % Neutrophils # (Auto) 17.23 1.4-6.5 K/uL Lymphocytes # (Auto) 1.49 1.2-3.4 K/uL Monocytes # (Auto) 1.40 0.11-0.59 K/uL Eosinophils # (Auto) 0.11 0-0.5 K/uL Basophils # (Auto) 0.04 0-0.2 K/uL RDW Standard Deviation 44.9 36.4-46.3 fL RDW Coefficient of Variation 13.8 11.5-14.5 % Immature Granulocyte % (Auto) 0.4 % Immature Granulocyte # (Auto) 0.09 0.00-0.02 K/uL Erythrocyte Sedimentation Rate 26 0-21 mm/hr Urine Color DK YELLOW Urine Appearance CLEAR CLEAR Urine pH 5.0 4.5-7.5 Urine Specific [place] 1.020 1.000-1.030 Urine Protein NEG NEG Urine Glucose (UA) NEG NEG Urine Ketones NEG NEG Urine Occult Blood NEG NEG Urine Nitrite NEG NEG Urine Bilirubin NEG NEG Urine Urobilinogen NEG NEG Urine Leukocyte Esterase TRACE NEG Urine WBC (Auto) 5-10 0-5 /hpf Urine RBC (Auto) 0-4 0-4 /hpf Urine Hyaline Casts (Auto) 1-5 0-5 /lpf Urine Epithelial Cells (Auto) >30 0-5 /lpf Urine Bacteria (Auto) 1+ NEG Sodium Level 139 136-145 mmol/L Potassium Level 3.6 3.5-5.1 mmol/L Chloride Level 109 98-107 mmol/L Carbon Dioxide Level 24 21-32 mmol/L Anion Gap 6.0 3-11 mmol/L Blood Urea Nitrogen 8 7-18 mg/dl Creatinine 0.72 0.60-1.20 mg/dl Est Creatinine Clear Calc Drug Dose 101.5 ml/min Estimated GFR () 124.0 Estimated GFR (Non- 107.0 BUN/Creatinine Ratio 10.4 10-20 Random Glucose 97 70-99 mg/dl Calcium Level 9.0 8.5-10.1 mg/dl Total Bilirubin 0.6 0.2-1 mg/dl Aspartate Amino Transf (AST/SGOT) 16 15-37 U/L Alanine Aminotransferase (ALT/SGPT) 21 12-78 U/L Alkaline Phosphatase 99 45-117 U/L Total Protein 8.3 6.4-8.2 gm/dl Albumin 4.1 3.4-5.0 gm/dl Globulin 4.2 2.5-4.0 gm/dl Albumin/Globulin Ratio 1.0 0.9-2 Lipase 117 73-393 U/L Human Chorionic Gonadotropin, Qual NEG NEG Test 11/15/17 23:44 11/15/17 23:45 Range/Units Microbiology Results 11/15/17 Urine Culture, Received Pending CXR normal Impression Assessment and Plan This is a 37 year old F who in 02/07/17 had ERCP with sphincterectomy and stone extraction and pancreatic stent placement at [facility] who presents with abdominal pain primarily of upper epigastrium and leukocytosis of 20,000 CT abdomen 11/15/17: Prior cholecystectomy. Liver is uniform. Spleen is unremarkable. Pancreas is considered unremarkable. No evidence for abscess collection or obstruction. Kidneys negative for calcification or hydronephrosis. Mild wall edema of the sigmoid consistent with a nonspecific colitis. Leukocytosis -at this time there is no readily identifiable infectious source for the leukocytosis -no recent antibiotic use, no diarrhea, will send C.diff and stool studies including H.pylori, and FOBT -obtain blood cultures, ESR is 26, send CRP and procalcitonin -UA with minimal bacteria -no recent steroid use Abdominal pain -CT imaging does not identify acute inflammation other than the mild wall edema for possible nonspecific colitis but the pain is primarily upper epigastrium -patient does not have lab or radiographic evidence of pancreatitis -does have history of pancreatic stent, request Gastroenterology consultation to evaluate whether pancreatic stent could be a cause of the pain or whether this discomfort may be due to GI or intestinal ulcers Patient is to be NPO for bowel rest, IV fluids, given antiemetics, narcotic pain control as needed and bowel regimen primarily to treat the abdominal pain Will repeat CBC to trend leukocytosis and observe whether this will decrease with IV hydration and pain control Will consider starting antibiotics if patient spikes fever or if labs positive for infection or based on GI recommendations placed on observation on telemetry and trend troponins in case the abdominal discomfort is an atypical cardiac pain, if no supporting evidence for acute coronary syndrome then patient should be transferred off telemetry service DVT ppx with SCD Full Code status patient's emergency contact is Mr. Angel Warner who is her ex- who the patient has given permission to know of her health history and health status Resuscitation Status VTE Prophylaxis Will order VTE Prophylaxis: Yes
[2017-11-16] MEDS: D5W AND 1/2NSS 1,000 ML IV SCH ×2 (00:58→12:58)
[2017-11-16 01:09] VITALS: BP 120/79; PULSE 85; TEMP 37.2; O2SAT 97; Ht 162.6 cm; Wt 68.5 kg
[2017-11-16] MEDS: MAGNESIUM SULFATE 1GM / D5W 1 GM in PREMIXED IN D5W 100 ML IV SCH ×2 (02:18→04:04)
[2017-11-16 07:00] VITALS: BP 109/69; PULSE 86; TEMP 37.2; O2SAT 95
[2017-11-16 07:23] LABS: BASO % 0.2 %; BASO ABS # 0.02 K/uL (0-0.2); EOS % 0.1 %; EOS ABS # 0.01 K/uL (0-0.5); HEMATOCRIT 43.1 % (37-47); HEMOGLOBIN 14.7 g/dL (12.0-16.0); IG# 0.03 K/uL (0.00-0.02); LYMPH % 13.4 %; LYMPH ABS # 1.75 K/uL (1.2-3.4); MEAN CELL VOLUME 88.7 fL (80-100); MEAN CORPUSCULAR HEMOGLOBIN 30.2 pg (25-34); MEAN CORPUSCULAR HGB CONC 34.1 g/dl (32-36); MEAN PLATELET VOLUME 10.1 fL (7.4-10.4); MONO % 4.5 %; MONO ABS # 0.59 K/uL (0.11-0.59); NEUT % 81.6 %; NEUT ABS # 10.63 K/uL (1.4-6.5); PLATELET COUNT 257 K/uL (130-400); RED CELL DISTRIBUTION WIDTH CV 13.9 % (11.5-14.5); RED CELL DISTRIBUTION WIDTH SD 45.3 fL (36.4-46.3); WHITE BLOOD COUNT 13.03 K/uL (4.8-10.8)
[2017-11-16 07:57] LABS: ALBUMIN 3.2 gm/dl (3.4-5.0); CALCIUM 7.9 mg/dl (8.5-10.1); CREATININE 0.65 mg/dl (0.60-1.20); POTASSIUM 3.6 mmol/L (3.5-5.1)
[2017-11-16] MEDS ORDERED: MoRPHine SULFATE 2 MG/ML CARP IV PRN (08:00)
[2017-11-16 08:04] LABS: TOTAL PROTEIN 6.8 gm/dl (6.4-8.2)
[2017-11-16] MEDS ORDERED: MoRPHine SULFATE 2 MG/ML CARP ONE (08:08)
[2017-11-16] MEDS ORDERED: SENNA 8.6 MG TAB PO SCH (09:00)
[2017-11-16] MEDS ORDERED: PANTOprazole SOD 40 MG TAB PO SCH (09:00)
[2017-11-16] MEDS ORDERED: DOCUSATE SODIUM 100 MG CAP PO SCH (09:00)
[2017-11-16 11:36] VITALS: BP 104/72; PULSE 76; TEMP 36.9; O2SAT 94
--- NOTE | 2017-11-16 13:26 | Gastrointestinal Consultation ---
Gastrointestinal Consultation Date of Consultation: Nov 16, 2017 Attending Physician: Dr. Cruz Consulting Physician: Dr. Calix Reason for Consultation: epigastric pain History of Present Illness Patient is a 37 year old female who presented to the ER with acute onset of epigastric pain followed by an episode of nausea and vomiting. She has not had any further nausea or vomiting. Her abdominal pain is improving. Sh eis hungry. No prior history of ulcer disease. Denies any problems with heartburn. No diarrhea. She had an admission with gallstone pancreatitis in January 2017 and underwent ERCP with sphincterotomy for papillary stenosis - stone removed. prophylactic pancreatic stent was placed and fell out appropriately. Labs on admission show normal LFTs and lipase. Denies any NSAID use. She does drink at least 4 32 oz bottles of Mt Dew a day and smokes 1-2 packs of cigarettes. no one at home with gastroenteritis. Has not eaten anything out of the ordinary in the last few days. GB removed in 2013. Past Medical/Surgical History Medical Problems: (1) Chest pain Status: Acute (2) Closed fracture of tuft of distal phalanx of finger Status: Acute (3) Elevated WBC count Status: Acute (4) Epigastric abdominal pain Status: Acute (5) Hypertension Status: Chronic Past Medical History: tobacco h/o pancreatitis - gallstone Past Surgical History: cholecystectomy 2014 Family History Cancer non-contributory Social History Smoking Status: Current Every Day Smoker Alcohol Use: none Marital Status: Housing Status: lives with significant other Occupation Status: unemployed Allergies Coded Allergies: Acetaminophen (Unverified Allergy, Unknown, DIZZINESS AND VERTIGO, 11/15/17 ) Diphenhydramine (Unverified Allergy, Unknown, UNKNOWN, 11/15/17) Penicillins (Unverified Allergy, Unknown, UNKNOWN, 11/15/17) Current Medications Home Meds and Scripts Medications Dose Route/Sig Max Daily Dose Days Date Category Trazodone (Trazodone HCl) 50 Mg Tab Unknown Dose PO HS PRN 11/15/17 Reported Review of Systems 12 systems reviewed and negative except as noted Physical Exam Date Time Temp Pulse Resp B/P (MAP) Pulse Ox O2 Delivery O2 Flow Rate FiO2 11/16/17 12:02 Room Air 11/16/17 11:36 36.9 76 18 104/72 (83 94 Room Air 11/16/17 08:15 Room Air 11/16/17 07:00 37.2 86 18 109/69 (82) 95 Room Air 11/16/17 04:00 Room Air 11/16/17 01:09 37.2 85 18 120/79 97 Room Air 11/16/17 00:26 86 18 108/63 97 Room Air 11/15/17 23:29 92 18 110/66 95 Room Air 11/15/17 21:37 78 18 105/60 98 Room Air 11/15/17 20:05 36.6 80 18 121/86 95 Room Air General Appearance: WD/WN, no apparent distress Eyes: normal inspection, PERRL ENT: normal ENT inspection, hearing grossly normal, pharynx normal Neck: supple, no adenopathy Respiratory/Chest: chest non-tender, lungs clear, normal breath sounds, no respiratory distress, no accessory muscle use Cardiovascular: regular rate, rhythm, no edema, no murmur Abdomen: normal bowel sounds, non tender, soft Extremities: normal range of motion, non-tender, normal inspection, no pedal edema Neurologic/Psych: medical sales II-XII nml as tested, no motor/sensory deficits, alert, normal mood/affect, oriented x 3 Skin: normal color, no jaundice, warm/dry, no rash Laboratory Results Last 24 Hours Test 11/15/17 20:30 11/16/17 01:09 11/16/17 07:14 White Blood Count 20.36 K/uL 13.03 K/uL Red Blood Count 5.45 M/uL 4.86 M/uL Hemoglobin 16.6 g/dL 14.7 g/dL Hematocrit 48.5 % 43.1 % Mean Corpuscular Volume 89.0 fL 88.7 fL Mean Corpuscular Hemoglobin 30.5 pg 30.2 pg Mean Corpuscular Hemoglobin Concent 34.2 g/dl 34.1 g/dl Platelet Count 292 K/uL 257 K/uL Mean Platelet Volume 10.2 fL 10.1 fL Neutrophils (%) (Auto) 84.7 % 81.6 % Lymphocytes (%) (Auto) 7.3 % 13.4 % Monocytes (%) (Auto) 6.9 % 4.5 % Eosinophils (%) (Auto) 0.5 % 0.1 % Basophils (%) (Auto) 0.2 % 0.2 % Neutrophils # (Auto) 17.23 K/uL 10.63 K/uL Lymphocytes # (Auto) 1.49 K/uL 1.75 K/uL Monocytes # (Auto) 1.40 K/uL 0.59 K/uL Eosinophils # (Auto) 0.11 K/uL 0.01 K/uL Basophils # (Auto) 0.04 K/uL 0.02 K/uL RDW Standard Deviation 44.9 fL 45.3 fL RDW Coefficient of Variation 13.8 % 13.9 % Immature Granulocyte % (Auto) 0.4 % 0.2 % Immature Granulocyte # (Auto) 0.09 K/uL 0.03 K/uL Erythrocyte Sedimentation Rate 26 mm/hr Urine Color DK YELLOW Urine Appearance CLEAR Urine pH 5.0 Urine Specific [place] 1.020 Urine Protein NEG Urine Glucose (UA) NEG Urine Ketones NEG Urine Occult Blood NEG Urine Nitrite NEG Urine Bilirubin NEG Urine Urobilinogen NEG Urine Leukocyte Esterase TRACE Urine WBC (Auto) 5-10 /hpf Urine RBC (Auto) 0-4 /hpf Urine Hyaline Casts (Auto) 1-5 /lpf Urine Epithelial Cells (Auto) >30 /lpf Urine Bacteria (Auto) 1+ Sodium Level 139 mmol/L 136 mmol/L Potassium Level 3.6 mmol/L 3.6 mmol/L Chloride Level 109 mmol/L 109 mmol/L Carbon Dioxide Level 24 mmol/L 20 mmol/L Anion Gap 6.0 mmol/L 7.0 mmol/L Blood Urea Nitrogen 8 mg/dl 7 mg/dl Creatinine 0.72 mg/dl 0.65 mg/dl Est Creatinine Clear Calc Drug Dose 101.5 ml/min 112.7 ml/min Estimated GFR () 124.0 131.5 Estimated GFR (Non- 107.0 113.4 BUN/Creatinine Ratio 10.4 11.0 Random Glucose 97 mg/dl 105 mg/dl Calcium Level 9.0 mg/dl 7.9 mg/dl Total Bilirubin 0.6 mg/dl 0.7 mg/dl Aspartate Amino Transf (AST/SGOT) 16 U/L 8 U/L Alanine Aminotransferase (ALT/SGPT) 21 U/L 15 U/L Alkaline Phosphatase 99 U/L 79 U/L Total Protein 8.3 gm/dl 6.8 gm/dl Albumin 4.1 gm/dl 3.2 gm/dl Globulin 4.2 gm/dl 3.6 gm/dl Albumin/Globulin Ratio 1.0 0.9 Lipase 117 U/L Human Chorionic Gonadotropin, Qual NEG Lactic Acid Level 1.8 mmol/L Magnesium Level 1.7 mg/dl 2.4 mg/dl Total Creatine Kinase 54 U/L Troponin I < 0.015 ng/ml < 0.015 ng/ml C-Reactive Protein 1.55 mg/dl Amylase Level 43 U/L Procalcitonin 0.06 ng/ml Impression Patient is a 37 year old female admitted with acute onset of epigastric pain and 1 episode of bilious emesis. Abd pain improving. Hungry. No lower GI symptoms. She drinks an excessive amount of Mt. Dew daily. No NSAIDs to raise concern for PUD. Plan - OK to advance diet and monitor symptoms. - Daily PPI - STOP DRINKING MT. DEW - If her symptoms persist or worsen, can consider an upper endoscopy this week.
[2017-11-16 15:17] VITALS: BP 108/72; PULSE 78; TEMP 37.1; O2SAT 95
[2017-11-16] MEDS ORDERED: TRAMADOL HCL 50 MG TAB ONE (17:23)
[2017-11-16] MEDS ORDERED: TRAMADOL HCL 50 MG TAB PO PRN (17:30)
--- NOTE | 2017-11-16 17:38 | Progress Note ---
Internal Med Progress Note Date of Service: Nov 16, 2017. Provider Documentation: SUBJECTIVE: RESTING COMFORTABLY ABDOMINAL PAIN IMPROVED NO NAUSEA NO SOB AFEBRILE OBJECTIVE: Vital Signs-as noted below Exam: General-alert and oriented. Not in distress ENT-Normal hearing Neck-no neck masses Lungs-cta b/l no wheezing or crackles Heart-S 1 and s2 heard regular no murmurs Abdomen-soft bowel sounds present non tender no distension Extremities-no edema no erythema Neuro-alert and awake moves extremities Lab data as noted below. ASSESSMENT & PLAN: This is a 37 year old F who in 02/07/17 had ERCP with sphincterectomy and stone extraction and pancreatic stent placement at [facility] who presents with abdominal pain primarily of upper epigastrium and leukocytosis of 20,000 Abdominal pain non specific colitis? improving drinks lot of soda appreciate gi inputs advancing diet ppi and monitor for symptoms Leukocytosis improving will f/u labs DVT PROPHYLAXIS scdds DISPOSITION possible d/c in am Vital Signs: Date Time Temp Pulse Resp B/P (MAP) Pulse Ox O2 Delivery O2 Flow Rate FiO2 11/16/17 16:20 Room Air 11/16/17 15:17 37.1 78 18 108/72 (84) 95 Room Air 11/16/17 12:02 Room Air 11/16/17 11:36 36.9 76 18 104/72 (83) 94 Room Air 11/16/17 08:15 Room Air 11/16/17 07:00 37.2 86 18 109/69 (82) 95 Room Air 11/16/17 04:00 Room Air 11/16/17 01:09 37.2 85 18 120/79 97 Room Air 11/16/17 00:26 86 18 108/63 97 Room Air 11/15/17 23:29 92 18 110/66 95 Room Air 11/15/17 21:37 78 18 105/60 98 Room Air 11/15/17 20:05 36.6 80 18 121/86 95 Room Air Lab Results: Results Past 24 Hours Test 11/15/17 20:30 11/16/17 01:09 11/16/17 07:14 Range/Units White Blood Count 20.36 13.03 4.8-10.8 K/uL Red Blood Count 5.45 4.86 4.2-5.4 M/uL Hemoglobin 16.6 14.7 12.0-16.0 g/dL Hematocrit 48.5 43.1 37-47 % Mean Corpuscular Volume 89.0 88.7 80-100 fL Mean Corpuscular Hemoglobin 30.5 30.2 25-34 pg Mean Corpuscular Hemoglobin Concent 34.2 34.1 32-36 g/dl Platelet Count 292 257 130-400 K/uL Mean Platelet Volume 10.2 10.1 7.4-10.4 fL Neutrophils (%) (Auto) 84.7 81.6 % Lymphocytes (%) (Auto) 7.3 13.4 % Monocytes (%) (Auto) 6.9 4.5 % Eosinophils (%) (Auto) 0.5 0.1 % Basophils (%) (Auto) 0.2 0.2 % Neutrophils # (Auto) 17.23 10.63 1.4-6.5 K/uL Lymphocytes # (Auto) 1.49 1.75 1.2-3.4 K/uL Monocytes # (Auto) 1.40 0.59 0.11-0.59 K/uL Eosinophils # (Auto) 0.11 0.01 0-0.5 K/uL Basophils # (Auto) 0.04 0.02 0-0.2 K/uL RDW Standard Deviation 44.9 45.3 36.4-46.3 fL RDW Coefficient of Variation 13.8 13.9 11.5-14.5 % Immature Granulocyte % (Auto) 0.4 0.2 % Immature Granulocyte # (Auto) 0.09 0.03 0.00-0.02 K/uL Erythrocyte Sedimentation Rate 26 0-21 mm/hr Urine Color DK YELLOW Urine Appearance CLEAR CLEAR Urine pH 5.0 4.5-7.5 Urine Specific [place] 1.020 1.000-1.030 Urine Protein NEG NEG Urine Glucose (UA) NEG NEG Urine Ketones NEG NEG Urine Occult Blood NEG NEG Urine Nitrite NEG NEG Urine Bilirubin NEG NEG Urine Urobilinogen NEG NEG Urine Leukocyte Esterase TRACE NEG Urine WBC (Auto) 5-10 0-5 /hpf Urine RBC (Auto) 0-4 0-4 /hpf Urine Hyaline Casts (Auto) 1-5 0-5 /lpf Urine Epithelial Cells (Auto) >30 0-5 /lpf Urine Bacteria (Auto) 1+ NEG Sodium Level 139 136 136-145 mmol/L Potassium Level 3.6 3.6 3.5-5.1 mmol/L Chloride Level 109 109 98-107 mmol/L Carbon Dioxide Level 24 20 21-32 mmol/L Anion Gap 6.0 7.0 3-11 mmol/L Blood Urea Nitrogen 8 7 7-18 mg/dl Creatinine 0.72 0.65 0.60-1.20 mg/dl Est Creatinine Clear Calc Drug Dose 101.5 112.7 ml/min Estimated GFR () 124.0 131.5 Estimated GFR (Non- 107.0 113.4 BUN/Creatinine Ratio 10.4 11.0 10-20 Random Glucose 97 105 70-99 mg/dl Calcium Level 9.0 7.9 8.5-10.1 mg/dl Total Bilirubin 0.6 0.7 0.2-1 mg/dl Aspartate Amino Transf (AST/SGOT) 16 8 15-37 U/L Alanine Aminotransferase (ALT/SGPT) 21 15 12-78 U/L Alkaline Phosphatase 99 79 45-117 U/L Total Protein 8.3 6.8 6.4-8.2 gm/dl Albumin 4.1 3.2 3.4-5.0 gm/dl Globulin 4.2 3.6 2.5-4.0 gm/dl Albumin/Globulin Ratio 1.0 0.9 0.9-2 Lipase 117 73-393 U/L Human Chorionic Gonadotropin, Qual NEG NEG Lactic Acid Level 1.8 0.4-2.0 mmol/L Magnesium Level 1.7 2.4 1.8-2.4 mg/dl Total Creatine Kinase 54 26-192 U/L Troponin I < 0.015 < 0.015 0-0.045 ng/ml C-Reactive Protein 1.55 0-0.29 mg/dl Amylase Level 43 25-115 U/L Procalcitonin 0.06 0-0.5 ng/ml Microbiology Results 11/16/17 Blood Culture, Received Pending 11/16/17 Blood Culture, Received Pending 11/15/17 Urine Culture - Preliminary, Resulted PIN-POINT GROWTH PRESENT, REINCUBATING.
[2017-11-16 18:18] VITALS: BP 108/72; PULSE 78; TEMP 37.1; O2SAT 95
[2017-11-16] MEDS ORDERED: PRT40 PO (18:21)
--- NOTE | 2017-11-16 18:22 | Discharge Instructions ---
Discharge Instructions Date of Service Nov 16, 2017. Admission Reason for Admission: Abdominal Pain, Leukocytosis Discharge Discharge Diagnosis / Problem: abdominal pain Discharge Goals Goal(s): Decrease discomfort, Improve function Activity Recommendations Activity Limitations: resume your previous activity . Instructions / Follow-Up Instructions / Follow-Up FOLLOWUP WITH FAMILY DOCTOR IN ONE WEEK Current Hospital Diet Patient's current hospital diet: Low Fiber Diet, Regular Diet Discharge Diet Recommended Diet: Regular Diet (AVOID SODA. AND SPICY FOODS) Pending Studies Studies pending at discharge: no Medical Emergencies . Who to Call and When: Medical Emergencies: If at any time you feel your situation is an emergency, please call 911 immediately. . Non-Emergent Contact Non-Emergency issues call your: Primary Care Provider . . "Provider Documentation" section prepared by Tee Cruz. .
--- NOTE | 2017-11-16 18:29 | Discharge Summary ---
Discharge Summary Date of Service Nov 16, 2017. Discharge Summary Admission Date: Nov 15, 2017 at 23:55 Discharge Date: Nov 16, 2017 Discharge Disposition: Home Principal Diagnosis: ABDOMINAL PAIN-RESOLVED Secondary Diagnoses/Problems: (1) Abdominal pain (2) Acute cholecystitis (3) Biliary obstruction (4) Cholecystitis (5) Cholecystitis (6) Closed fracture of tuft of distal phalanx of finger (7) Edema (8) Hypertension (9) Leukocytosis (10) Lower Leg Injury Nos (11) Pancreatitis (12) Sprain Of Foot Nos Procedures: CT ABD/PELVIS: 1. Mild wall edema of the sigmoid consistent with a nonspecific colitis. 2. No evidence for abscess collection or obstruction. 3. All remaining components of the study are unremarkable postcholecystectomy. 4. The pancreas specifically is unremarkable. CXR: Negative chest. Consultations: GI Medication Reconciliation New Medications: Pantoprazole (Pantoprazole Sodium) 40 Mg Tab 40 MG PO QAM, #30 TAB 1 Refill Continued Medications: Trazodone Hcl (Trazodone) 50 Mg Tab Unknown Dose PO HS PRN for Sleep, TAB Admission Information HPI (per Admitting provider): This is a 37 year old F who in 02/07/17 had ERCP with sphincterectomy and stone extraction and pancreatic stent placement at [facility] who presents on 11/15/17 with abdominal pain primarily of upper epigastrium and leukocytosis of 20,000 Symptoms began earlier in the day of 11/15/17. Patient denies history of fever, pain or gastric reflux symptoms associated with food. Denies pain radiating elsewhere to chest. Denies shortness of breath. Denies problems with urination or with bowel movements. She did have symptoms of nausea associated with the upper epigastric pain and vomited. Vomitus was yellow in color but she was recently drinking soda at the time. Patient denies recent history of antibiotic use of steroid use. Only has been taking Trazodone intermittently. Denies alcohol misuse. Denies recreational drug use. Smokes tobacco. Physical Exam (per Admitting): General Appearance: no apparent distress Head: normocephalic, atraumatic Eyes: normal inspection, EOMI, sclerae normal ENT: normal ENT inspection, hearing grossly normal, pharynx normal Neck: supple, no JVD, trachea midline Respiratory/Chest: chest non-tender, lungs clear, normal breath sounds, no respiratory distress, no accessory muscle use Cardiovascular: regular rate, rhythm, no edema, no JVD, no murmur, normal peripheral pulses Abdomen/GI: normal bowel sounds, soft, no organomegaly, no pulsatile mass, + tenderness (tenderness of upper epigrastrum) Back: normal inspection, no muscle spasm, normal range of motion, + pertinent finding (when assessing for left CVA tenderness, patient reported pain of left flank in the back and front of abdomen) Extremities/Musculoskelatal: normal inspection, no calf tenderness, normal capillary refill, no pedal edema, normal range of motion Neurologic/Psych: alert, normal mood/affect, oriented x 3 Skin: normal color, warm/dry, no rash Hospital Course This is a 37 year old F who in 02/07/17 had ERCP with sphincterectomy and stone extraction and pancreatic stent placement at [facility] who presents with abdominal pain primarily of upper epigastrium and leukocytosis of 20,000 Abdominal pain non specific colitis? improving drinks lot of soda appreciate gi inputs advanced diet and tolerating fine d/c on ppi doing fine and wants to go home gi referral if symptoms recur Leukocytosis improving will f/u labs discharged home to f/u with pcp Total time spent on discharge = 35MINUTES This includes examination of the patient, discharge planning, medication reconciliation, and communication with other providers. Discharge Instructions Please take this sheet to every appointment for the next month Discharge Instructions Date of Service Nov 16, 2017. Admission Reason for Admission: Abdominal Pain, Leukocytosis Discharge Discharge Diagnosis / Problem: abdominal pain Discharge Goals Goal(s): Decrease discomfort, Improve function Activity Recommendations Activity Limitations: resume your previous activity . Instructions / Follow-Up Instructions / Follow-Up FOLLOWUP WITH FAMILY DOCTOR IN ONE WEEK Current Hospital Diet Patient's current hospital diet: Low Fiber Diet, Regular Diet Discharge Diet Recommended Diet: Regular Diet (AVOID SODA. AND SPICY FOODS) Pending Studies Studies pending at discharge: no Medical Emergencies . Who to Call and When: Medical Emergencies: If at any time you feel your situation is an emergency, please call 911 immediately. . Non-Emergent Contact Non-Emergency issues call your: Primary Care Provider . .
== END 2017-11-16 18:48 | disposition home or self-care (01) ==
LOC: C.EDB 19:57 → C.MED 23:55 → ENRESERV 11-16 00:19
PROVIDERS: ADMIT Hospitalist; ATTEND Internal Medicine
DX: R10.9 Unspecified abdominal pain (principal); I10 Essential (primary) hypertension; F17.200 Nicotine dependence, unspecified, uncomplicated; D72.829 Elevated white blood cell count, unspecified